=== PATIENT | female | born 1955 | race Caucasian/White ===

== ENCOUNTER 2017-12-25 11:05 | Emergency (ER) | payer OTHER, SELFPAY ==
[2017-12-25 11:05] VITALS: BP 194/119; PULSE 107; RESP 15; TEMP 36.6; O2SAT 98; BMI 34.7
[2017-12-25 11:27] VITALS: BP 184/101; PULSE 101; RESP 18; O2SAT 100
--- NOTE | 2017-12-25 11:36 | CT_ITS ---
STUDY: CT SOFT TISSUE NECK WITHOUT CONTRAST REASON FOR EXAM: Female, 62 years old. Gagging sensation. Postnasal drip. Sinus infection. RADIATION DOSAGE (If Supplied By Facility): CTDIvol = ( 21.5 ) mGy, DLP = ( 595.88 ) mGycm TECHNIQUE: The patient was scanned in a multi-detector CT scanner. High resolution transaxial imaging was performed without the administration of intravenous contrast material. Sagittal and coronal images were reconstructed. Individualized dose optimization techniques were used for this CT. COMPARISON: None. FINDINGS: Normal bilateral parotid glands. Normal bilateral train crew member spaces. Normal bilateral parapharyngeal spaces. Normal bilateral carotid spaces. Normal bilateral sublingual and submandibular glands and spaces. Normal visualized nasopharynx. Normal retropharyngeal space. Normal perivertebral space. Normal visualized bilateral faucial tonsils. The visualized tongue, tongue base and oropharynx are normal. The visualized cervical lymph nodes (levels I-) are within normal size limits, and maintain normal morphology. There is no demonstrated solid or cystic mass lesion. Normal epiglottis, bilateral vallecula and hypopharynx. The pre-epiglottic and paraglottic adipose spaces are normal. Normal visualized bilateral piriform sinuses, aryepiglottic folds, vocal cords, and arytenoid-cricoid articulations. Normal subglottic trachea. Normal bilateral lobes of the thyroid gland. Normal visualized pulmonary apices. Benign mucus retention cyst in the roof of the right maxillary sinus and in the floor of the left maxillary sinus. Minimal mucosal thickening in the anterior wall of the left maxillary sinus. The remaining paranasal sinuses are normal. Pronounced disc space height narrowing at C6-C7 disc space level with posterior marginal spurs. Moderate disc space height narrowing at C3-C4 and C5-C6 disc space levels. Mild disc space height narrowing at C4-C5 disc space level. CT/Soft Tissue Neck without Contr IMPRESSION: 1. No CT evidence of any suspicious mass in the suprahyoid neck and infrahyoid neck. 2. Benign mucus retention cyst in the roof of the right maxillary sinus and in the floor of the left maxillary sinus. 3. Minimal mucosal thickening in the anterior wall of the left maxillary sinus. Electronically Signed: Denny Myles MD at 12:28 EST , Service support ,
--- NOTE | 2017-12-25 12:33 | ED.RN ---
ok for pt to take own Valium per
--- NOTE | 2017-12-25 12:45 | ED.VISSUMM ---
- ER Visit Summary Date of Service: 12/25/17 Chief Complaint: Pain with swallowing History of Present Illness: The patient is a [address] Velazquez. She was seen in the office yesterday and placed on amoxicillin for a sinus infection. She reports she has had a great deal postnasal drainage. Reports that today her throat feels scratchy and she is having pain when she swallows. She also complains of chills and nausea. She denies any other complaints. Physical Examination: Vitals: Stable. Afebrile. General: Well-nourished and well-developed. Head: Normocephalic atraumatic. HEENT: No pharyngeal erythema or tonsillar exudate. There is no tonsillar enlargement. No evidence of a peritonsillar abscess. She does have mild pain with movement of her trachea. Neck: Supple, no lymphadenopathy. No JVD. Nontender. Cardiovascular: Regular rate and rhythm. No murmurs. Respiratory: No respiratory distress. Clear to auscultation bilaterally. No stridor. Abdominal: Soft, nontender, nondistended, normal bowel sounds. No guarding, rebound, or peritoneal signs. Back: Nontender. Extremities: Nontender, no edema. Skin: Normal color, no rash. Neurologic: Alert and oriented ?3. Cranial nerves II through XII are intact. Normal strength and sensation. Psych: Normal affect. Test Results: CT soft tissues next shows sinusitis and normal epiglottis. Emergency Department Course and Treatment: Patient is able to swallow here without any difficulty. She is protecting her airway without any difficulty. Treatment Plan: Patient will be discharged instructions continue her antibiotics and follow-up with Dr. Ervin in 1 week if not improving. Return to the emergency department for any worsening symptoms. Disposition: To home in improved and stable condition. Impression: 1. Sinusitis. This note was generated with [employer] dictation software. It may contain incorrect words, spelling, and punctuation that were not noted in review of the chart prior to signing ED Disposition - Plan for ED Patient: Disposition: Home or Assisted Living Chief Complaint: Nausea/Vomiting Instructions: ED Sinusitis Abx Tx Referrals: Barbara Velazquez MD [Primary Care Provider] - 3-5 Days if not improving
== END 2017-12-25 13:20 | disposition home or self-care (01) ==
PROVIDERS: Emergency Provider Emergency Medicine; Family Provider Family Medicine; PCP Family Medicine
DX: J32.9 Chronic sinusitis, unspecified (principal); E78.00 Pure hypercholesterolemia, unspecified
CPT/HCPCS: 70490; 99282

== ENCOUNTER 2018-04-08 21:25 | Emergency (ER) | payer OTHER, SELFPAY ==
[2018-04-08 21:27] VITALS: BP 180/70; PULSE 109; RESP 20; TEMP 36.7; O2SAT 99; BMI 33.7
--- NOTE | 2018-04-08 21:44 | ED.VISSUMM ---
- ER Visit Summary Date of Service: 04/08/18 Chief Complaint: Dental pain History of Present Illness: The patient is a 63 F dental pain for several days. She had her implants adjusted and that is when the pain started at the site of the implant but she has also been having pain at her left mandibular second molar for several days. It is worse with chewing. Better with Motrin. No neck pain or jaw pain. No chest pain. No exertional pain. No recent antibiotics. Physical Examination: She does have focal tenderness on percussion of mandibular second molar. There is mild focal gum swelling. No trismus. No focal abscess. Submandibular tissues and anterior neck structures are soft. Voice is normal. No tongue elevation. Test Results: None Emergency Department Course and Treatment: She is concerned about a dental infection and she does have focal tenderness. I think it is reasonable to treat her with antibiotics and she will continue Motrin. She is planning to follow-up with her dentist. She will return if worse. This does not sound like atypical cardiac pain. Treatment Plan: Oral antibiotics and pain medication Disposition: Home stable condition Impression: Initial encounter dental pain This note was generated with [employer] dictation software. It may contain incorrect words, spelling, and punctuation that were not noted in review of the chart prior to signing ED Disposition - Plan for ED Patient: Chief Complaint: Dental Instructions: ED Tooth Pain Prescriptions: Lidocaine 2% Viscous [Xylocaine Viscous] 5 ml PO TID PRN #100 ml PRN Reason: Pain Penicillin V Potassium 500 mg PO 4X/DAY #40 tablet Referrals: Barbara Velazquez MD [Primary Care Provider] -
[2018-04-08] MEDS: Penicillin Vk 250 MG Tablet 500 MG PO (21:57)
--- NOTE | 2018-04-08 22:05 | ED.RN ---
PT REQUESTED TO HAVE T#3'S FOR HER DENTAL PAIN AND WAS TOLD TO ASK FOR THEM FROM HER PHARMACIST. THIS NURSE EXPLAINED THAT THE E.D. PHYSICIAN WROTE FOR LIDOCAINE SWISH AND ANTIBIOTICS, NOT FOR NARCOTICS. PT IS WELCOME TO TAKE NSAIDS FOR PAIN AND INFLAMMATION IF TOLERATED BY THE PT. PT WAS UPSET THAT SHE COULD NOT GET AN RX FOR NARCOTICS. DR. PRADO INFORMED OF SAME AND STATED HE WOULD NOT WRITE FOR NARCOTICS FOR PT'S DENTAL PAIN. PT THEN THANKED THIS NURSE FOR EVERYTHING AND THEN ASKED WHAT IS YOUR NAME? THIS NURSE STATED NAA PT THEN LEFT WITH DISCHARGE INSTRUCTIONS.
--- NOTE | 2018-04-09 10:41 | ED.DEP ---
ED Disposition - Plan for ED Patient: Disposition: Home or Assisted Living Chief Complaint: Dental Instructions: ED Tooth Pain Prescriptions: Lidocaine 2% Viscous [Xylocaine Viscous] 5 ml PO TID PRN #100 ml PRN Reason: Pain Lidocaine 2% Viscous [Xylocaine Viscous] 5 ml PO TID #100 ml Penicillin V Potassium 500 mg PO 4X/DAY #40 tablet Penicillin V Potassium 500 mg PO 4X/DAY #40 tab Referrals: Barbara Velazquez MD [Primary Care Provider] -
== END 2018-04-08 22:10 | disposition home or self-care (01) ==
LOC: ED 22:02
PROVIDERS: Emergency Provider Emergency Medicine; Family Provider Family Medicine; PCP Family Medicine
DX: K08.89 Other specified disorders of teeth and supporting structures (principal)
CPT/HCPCS: 99283

== ENCOUNTER 2018-05-07 19:27 | Emergency (ER) | payer OTHER, SELFPAY ==
[2018-05-07 19:28] VITALS: BP 154/96; PULSE 100; RESP 18; TEMP 36.7; O2SAT 100; BMI 35.0
--- NOTE | 2018-05-07 20:09 | ED.DCSUM_ITS ---
- ER Visit Summary Date of Service: 05/07/18 Chief Complaint: Earwax drops accidentally placed in left eye History of Present Illness: The patient is a 63 F of anxiety. States that she started on earwax drops and actually put him in her left eye and some mild discomfort. She called poison control. Watch dry out thoroughly. Was concerned and came in to have it evaluated. She wears glasses no contacts. She denies any pain. She denies any redness. She denies any swelling. She denies any visual change. She has never had eye surgery. Currently she states she is completely pain-free. Physical Examination: Very well-appearing female. Vital signs are stable afebrile. HEENT exam normal left eye is normal color there is no redness or discoloration. There is no injection. The upper and lower lids are unremarkable without any signs of trauma nor any swelling. Pupils round reactive light bilaterally. Extra motions are intact. There is no swelling, redness or signs of trauma to the face. There are no signs of foreign body or abrasions to the left eye. Otherwise exam is unremarkable. Test Results: None Emergency Department Course and Treatment: Clinically patient's eye is normal. She is having no complaints. No visual change. She needs no further testing. She already washed it out at home. She did bring the earwax drops with her which were basically peroxide. Treatment Plan: Discharged to home. Wash her eye out again tonight before bedtime. Disposition: Discharge Impression: Chemical exposure left eye This note was generated with [employer] dictation software. It may contain incorrect words, spelling, and punctuation that were not noted in review of the chart prior to signing ED Disposition - Plan for ED Patient: Chief Complaint: Eye Problem Referrals: Barbara Velazquez MD [Primary Care Provider] -
--- NOTE | 2018-05-07 20:09 | ED.DEP ---
ED Disposition - Plan for ED Patient: Disposition: Home or Assisted Living Chief Complaint: Eye Problem Referrals: Tracy Craven MD [STAFF PHYSICIAN] - 1-2 Days if not improving Additional Instructions: This should not cause your eye any problem. The earwax drops are basically peroxide and should not cause any injury. Wash her eye out at home again today before bedtime. Follow-up with the director of resource development only if having symptoms.
[2018-05-07 20:22] VITALS: RESP 16
== END 2018-05-07 20:22 | disposition home or self-care (01) ==
LOC: ED 20:16
PROVIDERS: Emergency Provider Emergency Medicine; Family Provider Family Medicine; PCP Family Medicine
DX: Z77.098 Contact with and (suspected) exposure to other hazardous, chiefly nonmedicinal, chemicals (principal); K21.9 Gastro-esophageal reflux disease without esophagitis
CPT/HCPCS: 99282

== ENCOUNTER 2018-07-26 01:06 | Emergency (ER) | payer OTHER, SELFPAY ==
[2018-07-26 01:07] VITALS: BP 213/105; PULSE 115; RESP 21; TEMP 36.4; O2SAT 100; BMI 35.5
--- NOTE | 2018-07-26 01:20 | ED.VISSUMM ---
- ER Visit Summary Date of Service: 07/26/18 Chief Complaint: Do not feel all here History of Present Illness: The patient is a 63 F who presents for 30 minutes of feeling dissociated and lightheaded. Patient states she was watching TV when she suddenly felt lightheaded and like she was not all here. She felt heartburn and palpitations, also complaining of dry mouth. states she took extra Valium prior to coming in because of how she was feeling. She denies fever, vision changes, chest pain, shortness of breath, abdominal pain, nausea vomiting or diarrhea. No urinary symptoms. No headache. Patient feels diffusely weak and not herself. Patient takes Valium twice daily, decreased from 3 times daily, but she has been on this decreased regimen for several weeks. She denies any alcohol use, marijuana use, or any other drug use. She denies any use of [id number] medications. History of anxiety attacks, chronic dry mouth, Physical Examination: Vital signs: afebrile, hypertensive and tachycardic, no hypoxia on room air General: well nourished, well developed, in no distress Skin: warm, dry, scattered erythematous patches on the upper extremities, no urticaria, no pallor HEENT: normocephalic and atraumatic; PERRL, EOMI, dry mucous membranes Cardiovascular: Tachycardic rate and rhythm without murmurs, no peripheral edema, 2+ pulses all distal extremities Respiratory: No increased work of breathing, lungs are clear to auscultation bilaterally, no rales, rhonchi or wheezing Abdominal: Abdomen is soft, nontender with normoactive bowel sounds, no guarding or rebound, no masses MSK: Moves all extremities, no deformities, normal strength Neuro: Awake and alert, oriented ?4. Speech is slow and slurred, patient requires constant refocusing to keep her attention on the questions at hand, no facial droop, sensation and motor function intact and symmetric Test Results: Abnormal Lab Results 07/26/18 07/26/18 07/26/18 01:15 01:15 01:30 WBC 12.0 H RBC 4.06 L Hgb 11.4 L Hct 33.5 L MCV 82.5 MCH 28.1 MCHC 34.0 RDW 13.7 RDW Differential 40.7 Plt Count 442 MPV 9.6 Immature Gran % (Auto) 0.200 Neut % (Auto) 53.4 Lymph % (Auto) 36.1 [place] % (Auto) 8.1 Eos % (Auto) 1.8 Baso % (Auto) 0.4 Absolute Neuts (auto) 6.4 Absolute Lymphs (auto) 4.34 Total Counted Not Reportable Sodium 130 L Potassium 3.5 Chloride 97 L Carbon Dioxide 22.0 Anion Gap 11 BUN 8 Creatinine 0.68 Estim Creat Clear Calc 80.30 Est GFR (MDRD) Af Amer 114 Est GFR (MDRD) Non-Af 94 BUN/Creatinine Ratio 11.9 Glucose 123 H Calcium 8.7 Magnesium 2.3 Troponin I < 0.015 TSH 5.54 H Urine Color Urine Clarity Urine pH Ur Specific [place] Urine Protein Urine Glucose (UA) Urine Ketones Urine Occult Blood Urine Nitrite Urine Bilirubin Urine Urobilinogen Ur Leukocyte Esterase Urine RBC Urine WBC Ur Squamous Epith Cells Urine Bacteria Urine Mucus Urine Opiates Screen Urine Methadone Screen Ur Barbiturates Screen Ur Phencyclidine Scrn Ur Amphetamines Screen U Methamphetamin-MDMA U Benzodiazepines Scrn Urine Cocaine Screen U Cannabinoids Screen Ur Drug Screen Comment Ethyl Alcohol < 3.0 07/26/18 07/26/18 01:55 01:55 WBC RBC Hgb Hct MCV MCH MCHC RDW RDW Differential Plt Count MPV Immature Gran % (Auto) Neut % (Auto) Lymph % (Auto) [place] % (Auto) Eos % (Auto) Baso % (Auto) Absolute Neuts (auto) Absolute Lymphs (auto) Total Counted Sodium Potassium Chloride Carbon Dioxide Anion Gap BUN Creatinine Estim Creat Clear Calc Est GFR (MDRD) Af Amer Est GFR (MDRD) Non-Af BUN/Creatinine Ratio Glucose Calcium Magnesium Troponin I TSH Urine Color Straw Urine Clarity Clear Urine pH 8.0 Ur Specific [place] 1.010 Urine Protein Negative Urine Glucose (UA) Normal Urine Ketones Negative Urine Occult Blood Negative Urine Nitrite Negative Urine Bilirubin Negative Urine Urobilinogen Normal Ur Leukocyte Esterase Negative Urine RBC 0 SEEN Urine WBC 0 SEEN Ur Squamous Epith Cells 0 SEEN Urine Bacteria 0 SEEN Urine Mucus 0 SEEN Urine Opiates Screen NEGATIVE Urine Methadone Screen NEGATIVE Ur Barbiturates Screen NEGATIVE Ur Phencyclidine Scrn NEGATIVE Ur Amphetamines Screen NEGATIVE U Methamphetamin-MDMA NEGATIVE U Benzodiazepines Scrn NEGATIVE Urine Cocaine Screen NEGATIVE U Cannabinoids Screen NEGATIVE Ur Drug Screen Comment Ethyl Alcohol Clinical Impression(s) from Imaging Studies Chest X-Ray 07/26/18 01:19 IMPRESSION: A mild thoracic scoliosis with convexity to the right. No acute findings in the lungs Electronically Signed: Daniel Andrews, at 2:29 EDT Tel , Service support , Medications Given Discontinued Medications Aspirin (Aspirin, Baby) 324 mg PO X1 STA Stop: 07/26/18 01:20 Last Admin: 07/26/18 01:50 Dose: 324 mg Sodium Chloride () 1,000 mls @ 1,000 mls/hr IV .Q1H ONE Stop: 07/26/18 02:18 Last Admin: 07/26/18 02:00 Dose: 1,000 mls/hr Emergency Department Course and Treatment: Patient presents feeling dissociated, with tachycardia, hypertension, dry mouth and blotchy erythema of the skin without known cause. Patient denies any chance of withdrawal from medication, or drug or medication reaction. Workup was performed showing no significant electrolyte derangements, renal or hepatic derangements, leukocytosis. Tox screen and alcohol were negative. EKG showed sinus rhythm without any ischemic changes. TSH was modestly elevated at 5.5. Chest x-ray showed no acute process. Patient received fluid bolus and aspirin, with initial concern for possible atypical chest pain. shared that the patient often has anxiety and her current presentation is not abnormal for her. 03:10 -After period of observation and receiving IV hydration, patient's symptoms resolved. patient reevaluated and was sitting in bed very calmly. Speech was normal, no slurring, no slowing, mucous membranes were moist. Heart rate 100. Patient states she feels much better no longer feels outside of herself. She feels well enough to go home. Patient was discharged. Treatment Plan: [] Disposition: [] Impression: Panic attack This note was generated with [employer] dictation software. It may contain incorrect words, spelling, and punctuation that were not noted in review of the chart prior to signing ED Disposition - Plan for ED Patient: Disposition: Home or Assisted Living Chief Complaint: Anxiety Instructions: ED Panic Attack Referrals: Barbara Velazquez MD [Primary Care Provider] - 1-2 Days if not improving Additional Instructions: Your workup did not show any concerning findings to explain your episode of feeling dissociated. Please follow-up with your doctor within 1-2 days for another evaluation if you have any further episodes. You can also return to the emergency department at any time if you have any worsening or new concerning symptoms. Continue all your medications as prescribed. If you have any worsening of your condition or any new concerning symptoms, please return immediately to the emergency department for another evaluation.
--- NOTE | 2018-07-26 01:23 | ED.DCSUM_ITS ---
- ER Visit Summary Date of Service: 07/26/18 Chief Complaint: Do not feel all here History of Present Illness: The patient is a 63 F who presents for 30 minutes of feeling dissociated and lightheaded. Patient states she was watching TV when she suddenly felt lightheaded and like she was not all here. She felt heartburn and palpitations, also complaining of dry mouth. states she took extra Valium prior to coming in because of how she was feeling. She denies fever, vision changes, chest pain, shortness of breath, abdominal pain, nausea vomiting or diarrhea. No urinary symptoms. No headache. Patient feels diffusely weak and not herself. Patient takes Valium twice daily, decreased from 3 times daily, but she has been on this decreased regimen for several weeks. She denies any alcohol use, marijuana use, or any other drug use. She denies any use of [id number] medications. History of anxiety attacks, chronic dry mouth, Physical Examination: Vital signs: afebrile, hypertensive and tachycardic, no hypoxia on room air General: well nourished, well developed, in no distress Skin: warm, dry, scattered erythematous patches on the upper extremities, no urticaria, no pallor HEENT: normocephalic and atraumatic; PERRL, EOMI, dry mucous membranes Cardiovascular: Tachycardic rate and rhythm without murmurs, no peripheral edema , 2+ pulses all distal extremities Respiratory: No increased work of breathing, lungs are clear to auscultation bilaterally, no rales, rhonchi or wheezing Abdominal: Abdomen is soft, nontender with normoactive bowel sounds, no guarding or rebound, no masses MSK: Moves all extremities, no deformities, normal strength Neuro: Awake and alert, oriented ?4. Speech is slow and slurred, patient requires constant refocusing to keep her attention on the questions at hand, no facial droop, sensation and motor function intact and symmetric Test Results: Abnormal Lab Results 07/26/18 07/26/18 07/26/18 01:15 01:15 01:30 WBC 12.0 H RBC 4.06 L Hgb 11.4 L Hct 33.5 L MCV 82.5 MCH 28.1 MCHC 34.0 RDW 13.7 RDW Differential 40.7 Plt Count 442 MPV 9.6 Immature Gran % (Auto) 0.200 Neut % (Auto) 53.4 Lymph % (Auto) 36.1 [place] % (Auto) 8.1 Eos % (Auto) 1.8 Baso % (Auto) 0.4 Absolute Neuts (auto) 6.4 Absolute Lymphs (auto) 4.34 Total Counted Not Reportable Sodium 130 L Potassium 3.5 Chloride 97 L Carbon Dioxide 22.0 Anion Gap 11 BUN 8 Creatinine 0.68 Estim Creat Clear Calc 80.30 Est GFR (MDRD) Af Amer 114 Est GFR (MDRD) Non-Af 94 BUN/Creatinine Ratio 11.9 Glucose 123 H Calcium 8.7 Magnesium 2.3 Troponin I < 0.015 TSH 5.54 H Urine Color Urine Clarity Urine pH Ur Specific [place] Urine Protein Urine Glucose (UA) Urine Ketones Urine Occult Blood Urine Nitrite Urine Bilirubin Urine Urobilinogen Ur Leukocyte Esterase Urine RBC Urine WBC Ur Squamous Epith Cells Urine Bacteria Urine Mucus Urine Opiates Screen Urine Methadone Screen Ur Barbiturates Screen Ur Phencyclidine Scrn Ur Amphetamines Screen U Methamphetamin-MDMA U Benzodiazepines Scrn Urine Cocaine Screen U Cannabinoids Screen Ur Drug Screen Comment Ethyl Alcohol < 3.0 07/26/18 07/26/18 01:55 01:55 WBC RBC Hgb Hct MCV MCH MCHC RDW RDW Differential Plt Count MPV Immature Gran % (Auto) Neut % (Auto) Lymph % (Auto) [place] % (Auto) Eos % (Auto) Baso % (Auto) Absolute Neuts (auto) Absolute Lymphs (auto) Total Counted Sodium Potassium Chloride Carbon Dioxide Anion Gap BUN Creatinine Estim Creat Clear Calc Est GFR (MDRD) Af Amer Est GFR (MDRD) Non-Af BUN/Creatinine Ratio Glucose Calcium Magnesium Troponin I TSH Urine Color Straw Urine Clarity Clear Urine pH 8.0 Ur Specific [place] 1.010 Urine Protein Negative Urine Glucose (UA) Normal Urine Ketones Negative Urine Occult Blood Negative Urine Nitrite Negative Urine Bilirubin Negative Urine Urobilinogen Normal Ur Leukocyte Esterase Negative Urine RBC 0 SEEN Urine WBC 0 SEEN Ur Squamous Epith Cells 0 SEEN Urine Bacteria 0 SEEN Urine Mucus 0 SEEN Urine Opiates Screen NEGATIVE Urine Methadone Screen NEGATIVE Ur Barbiturates Screen NEGATIVE Ur Phencyclidine Scrn NEGATIVE Ur Amphetamines Screen NEGATIVE U Methamphetamin-MDMA NEGATIVE U Benzodiazepines Scrn NEGATIVE Urine Cocaine Screen NEGATIVE U Cannabinoids Screen NEGATIVE Ur Drug Screen Comment Ethyl Alcohol Clinical Impression(s) from Imaging Studies Chest X-Ray 07/26/18 01:19 IMPRESSION: A mild thoracic scoliosis with convexity to the right. No acute findings in the lungs Electronically Signed: Daniel Andrews, at 2:29 EDT Tel , Service support , Medications Given Discontinued Medications Aspirin (Aspirin, Baby) 324 mg PO X1 STA Stop: 07/26/18 01:20 Last Admin: 07/26/18 01:50 Dose: 324 mg Sodium Chloride () 1,000 mls @ 1,000 mls/hr IV .Q1H ONE Stop: 07/26/18 02:18 Last Admin: 07/26/18 02:00 Dose: 1,000 mls/hr Emergency Department Course and Treatment: Patient presents feeling dissociated , with tachycardia, hypertension, dry mouth and blotchy erythema of the skin without known cause. Patient denies any chance of withdrawal from medication, or drug or medication reaction. Workup was performed showing no significant electrolyte derangements, renal or hepatic derangements, leukocytosis. Tox screen and alcohol were negative. EKG showed sinus rhythm without any ischemic changes. TSH was modestly elevated at 5.5. Chest x-ray showed no acute process. Patient received fluid bolus and aspirin, with initial concern for possible atypical chest pain. shared that the patient often has anxiety and her current presentation is not abnormal for her. 03:10 -After period of observation and receiving IV hydration, patient's symptoms resolved. patient reevaluated and was sitting in bed very calmly. Speech was normal, no slurring, no slowing, mucous membranes were moist. Heart rate 100. Patient states she feels much better no longer feels outside of herself. She feels well enough to go home. Patient was discharged. Treatment Plan: [] Disposition: [] Impression: Panic attack This note was generated with [employer] dictation software. It may contain incorrect words, spelling, and punctuation that were not noted in review of the chart prior to signing ED Disposition - Plan for ED Patient: Disposition: Home or Assisted Living Chief Complaint: Anxiety Instructions: ED Panic Attack Referrals: Barbara Velazquez MD [Primary Care Provider] - 1-2 Days if not improving Additional Instructions: Your workup did not show any concerning findings to explain your episode of feeling dissociated. Please follow-up with your doctor within 1-2 days for another evaluation if you have any further episodes. You can also return to the emergency department at any time if you have any worsening or new concerning symptoms. Continue all your medications as prescribed. If you have any worsening of your condition or any new concerning symptoms, please return immediately to the emergency department for another evaluation.
[2018-07-26 01:41] LABS: Absolute Lymphocyte Count 4.34 X10^3/ul (0.83-4.51); Absolute Neutrophil Count 6.4 X10^3/uL (2.0-7.7); Basophil# 0.05 X10^3/uL; Basophil% 0.4 % (0-1); Eosinophil# 0.22 X10^3/uL; Eosinophils% 1.8 % (0-5); Hematocrit 33.5 % (37-47); Hemoglobin 11.4 g/dl (12.0-15.0); Lymphocyte # 4.34 X10^3/ul (4.0); Lymphocyte % 36.1 % (19-41); Mean Corpuscular Hgb 28.1 pg (27.0-32.0); Mean Corpuscular Volume 82.5 fL (81-99); Mean Platelet Vol. 9.6 fl (6.2-12.0); Monocyte# 0.98 X10^3/uL; Monocyte% 8.1 % (0-10); Neutrophil # 6.42 X10^3/uL (2.7-7.7); Neutrophil % 53.4 % (47-70); POSITIVE COUNT NO; POSITIVE DIFFERENTIAL NO; POSITIVE MORPHOLOGY NO; Platelet Count 442 K/mm3 (150-450); RBC Distribution Width CV 13.7 % (11.6-14.6); RBC Distribution Width SD 40.7 fl (35.1-43.9); Red Blood Count 4.06 M/mm3 (4.2-5.4)
[2018-07-26] MEDS: Aspirin 81 MG TAB.CHEW 324 MG PO (01:50)
[2018-07-26 02:00] LABS: Anion Gap 11 (5-15); BUN 8 mg/dL (7-18); BUN/Creat Ratio 11.9 RATIO (10-20); Calcium,Total 8.7 mg/dL (8.5-10.1); Chloride 97 mmol/L (98-107); Creatinine, Serum 0.68 mg/dL (0.55-1.02); EST Glomerular Filtration Rate 94 mL/min (>60); Est Glom Filt Rate - Afr Amer 114 mL/min (>60); Glucose 123 mg/dL (74-106); Magnesium 2.3 mg/dL (1.6-2.6); Potassium 3.5 mmol/L (3.5-5.1); Sodium Level 130 mmol/L (136-145); Thyroid Stim Hormone (TSH) 5.54 uIU/mL (0.358-3.74)
[2018-07-26] MEDS: 0.9% Normal Saline 1,000 ML 1000 ML IV (02:00)
[2018-07-26 02:05] LABS: Alcohol, Blood (Medical)-Serum < 3.0 mg/dL
[2018-07-26 02:13] LABS: Amphetamine Urine VISTA NEGATIVE (<1000 ng/mL); Barbiturate Urine VISTA NEGATIVE (< 200 ng/mL); Benzodiazepine Urine VISTA NEGATIVE (< 200 ng/mL); Cocaine Urine VISTA NEGATIVE (< 300 ng/mL); Ecstacy Urine VISTA NEGATIVE (< 500 ng/mL); Methadone Urine VISTA NEGATIVE (< 300 ng/mL); PCP Urine VISTA NEGATIVE (< 25 ng/mL); THC Urine VISTA NEGATIVE (< 50 ng/mL); Vista UDS pH Range 7
--- NOTE | 2018-07-26 03:10 | ED.DEP ---
ED Disposition - Plan for ED Patient: Disposition: Home or Assisted Living Chief Complaint: Anxiety Instructions: ED Panic Attack Referrals: Barbara Velazquez MD [Primary Care Provider] - 1-2 Days if not improving Additional Instructions: Your workup did not show any concerning findings to explain your episode of feeling dissociated. Please follow-up with your doctor within 1-2 days for another evaluation if you have any further episodes. You can also return to the emergency department at any time if you have any worsening or new concerning symptoms. Continue all your medications as prescribed. If you have any worsening of your condition or any new concerning symptoms, please return immediately to the emergency department for another evaluation.
[2018-07-26 03:36] VITALS: BP 174/97; PULSE 105; RESP 16; O2SAT 100
[2018-07-26 04:26] LABS: Bacteria 0 SEEN /hpf (None Seen); Mucous, Urine 0 SEEN /hpf (<or=2+); Red Blood Cells-Urine 0 SEEN /hpf (0-5); Squamous Epithelial Cells - UA 0 SEEN /hpf (5-10); White Blood Cells 0 SEEN /hpf (0-5)
[2018-07-26 04:37] LABS: Color, Urine Straw (Yellow); Glucose, Dipstick Normal (Normal); Ketone-Dipstick Negative (Negative); Leukocyte Esterase-Dipstick Negative /ul (Negative); Nitrite-Dipstick Negative (Negative); Occult Blood-Urine Negative /ul (Negative); Protein-Dipstick Negative (Negative); Urine Bilirubin Dipstick Negative (Negative); Urine Clarity Clear (Clear); Urine Urobilinogen Normal (Normal)
== END 2018-07-26 03:37 | disposition home or self-care (01) ==
PROVIDERS: Emergency Provider Emergency Medicine; Family Provider Family Medicine; PCP Family Medicine
DX: F41.0 Panic disorder [episodic paroxysmal anxiety] (principal)
CPT/HCPCS: 71046; 80048; 80307; 80320; 81001; 83735; 84443; 84484; 85025; 93005; 96360; 99284; J7030; G0480

== ENCOUNTER 2018-10-30 06:57 | Emergency (ER) | payer OTHER, SELFPAY ==
[2018-10-30 06:57] VITALS: BMI 34.7
[2018-10-30 06:58] VITALS: BP 219/104; PULSE 114; RESP 18; TEMP 36.7; O2SAT 98; BMI 35.8
--- NOTE | 2018-10-30 07:11 | EKG12_ITS ---
Test Reason : CP Blood Pressure : / mmHG Vent. Rate : 116 BPM Atrial Rate : 116 BPM P-R Int : 156 ms QRS Dur : 110 ms QT Int : 334 ms P-R-T Axes : 035 -15 030 degrees QTc Int : 464 ms Sinus tachycardia Otherwise normal ECG Confirmed by BIA KIM, MIGUELINA ([id number]), photo editor MITZY ROY ([id number]) on 11/02/2018 1:53:49 PM Referred By: MORGAN Confirmed By:MIGUELIAN AMEZQUITA MD
--- NOTE | 2018-10-30 07:17 | RAD_ITS ---
STUDY: X-RAY CHEST REASON FOR EXAM: Female, 63 years old. Chest TECHNIQUE: Frontal view COMPARISON: None. FINDINGS: The lungs are clear and expanded. There is no demonstrated pleural abnormality. Normal size heart. Normal mediastinum and fe. Normal visualized pulmonary arteries. Normal visualized aortic arch and descending thoracic aorta. There is mild dextroscoliosis of the thoracic spine. Normal visualized ribs, clavicles, and shoulders. There is no demonstrated abnormality of the visualized soft tissue structures of the upper abdomen. RAD/Chest 1 View (Portable) IMPRESSION: There is NO acute cardiopulmonary abnormality. Electronically Signed: Jostin Cardenas MD at 7:41 EST , Service support ,
[2018-10-30 07:38] LABS: Absolute Lymphocyte Count 4.14 X10^3/ul (0.83-4.51); Absolute Neutrophil Count 7.2 X10^3/uL (2.0-7.7); Basophil# 0.03 X10^3/uL; Basophil% 0.2 % (0-1); Eosinophil# 0.14 X10^3/uL; Eosinophils% 1.1 % (0-5); Hematocrit 33.4 % (37-47); Hemoglobin 11.1 g/dl (12.0-15.0); Lymphocyte # 4.14 X10^3/ul (4.0); Lymphocyte % 33.3 % (19-41); Mean Corp Hgb Conc 33.2 g/gl (32-36); Mean Corpuscular Hgb 27.1 pg (27.0-32.0); Mean Corpuscular Volume 81.5 fL (81-99); Mean Platelet Vol. 8.9 fl (6.2-12.0); Monocyte# 0.92 X10^3/uL; Monocyte% 7.4 % (0-10); Neutrophil % 57.8 % (47-70); Platelet Count 463 K/mm3 (150-450); RBC Distribution Width CV 14.3 % (11.6-14.6); RBC Distribution Width SD 42.8 fl (35.1-43.9); White Blood Count 12.5 K/mm3 (4.4-11.0)
[2018-10-30 07:40] LABS: POSITIVE COUNT NO; POSITIVE DIFFERENTIAL NO; POSITIVE MORPHOLOGY NO
--- NOTE | 2018-10-30 07:43 | ED.DCSUM_ITS ---
- ER Visit Summary Date of Service: 10/30/18 Chief Complaint: Chest pressure History of Present Illness: The patient is a 63 F no prior history of cardiac disease. No significant family history of coronary disease. Non-smoker. Patient states since last evening around 530 she has had chest pressure has been constant. Not associated with exertion. She denies any shortness of breath, nausea or diaphoresis. She has had a prior stress test that was negative. She is never had a cardiac catheterization. She denies any history of DVT or PE. No hemoptysis. The chest pain is not pleuritic. She denies any leg pain or swelling. No recent travel, surgery or immobilization. Nothing specifically makes the pain better or worse. Recently they have been weaning her Valium prescription that she is on for a panic disorder. Physical Examination: Well-appearing female. Vital signs are stable and afebrile. Her initial blood pressure is elevated at 219/104. She does appear anxious. She is in no distress. H EENT exam unremarkable. Neck nontender. No JVD. Lungs clear to auscultation bilaterally. Heart tachycardic rate about 116. No murmur. Chest wall nontender. Abdomen soft nontender. Normal bowel sounds no peritoneal signs. Patient is moving all 4 extremities. They are neurovascularly intact. Calves are nontender without edema or cords. Neurologically patient is awake and alert with no focal motor deficits. She has equal symmetrical senior research fellow strength. Equal symmetrical dorsi and plantar flexion. She has no focal motor deficits. Test Results: Patient will undergo cardiac workup. CBC shows white count 12.5. Hemoglobin 11 which is her baseline anemia. BMP shows a sodium of 129 previously she was 130. She has a normal creatinine and gap. Troponin is normal. Initial EKG was sinus tach at 116 without any signs of IA or ischemia. Portable 1 view chest x-ray shows a normal cardiac silhouette and mediastinum. Emergency Department Course and Treatment: P.O. aspirin. On repeat exam patient has been doing well the entire time in the emergency department. Currently she is symptom-free. Again this was completely nonexertional. Her workup is unremarkable. She denies discussed a 3-hour troponin which she is been deferred at this time and follow-up with her physician. Currently she is symptom-free. Treatment Plan: Patient is doing well on multiple repeat exams. She will be discharged home to follow-up with her primary care physician. Disposition: Discharge Impression: Acute chest pain of uncertain etiology This note was generated with [employer] dictation software. It may contain incorrect words, spelling, and punctuation that were not noted in review of the chart prior to signing ED Disposition - Plan for ED Patient: Chief Complaint: Chest Pain Referrals: Barbara Velazquez MD [Primary Care Provider] -
[2018-10-30 07:47] VITALS: BP 123/95; PULSE 104; RESP 19; O2SAT 99
[2018-10-30] MEDS: Aspirin 81 MG TAB.CHEW 324 MG PO (07:47)
[2018-10-30 07:51] LABS: Anion Gap 12 (5-15); BUN 7 mg/dL (7-18); Calcium,Total 8.7 mg/dL (8.5-10.1); Chloride 93 mmol/L (98-107); EST Glomerular Filtration Rate 90 mL/min (>60); Est Glom Filt Rate - Afr Amer 109 mL/min (>60); Estimated Creatinine Clearance 78.01 ml/min; Glucose 120 mg/dL (74-106); Potassium 3.3 mmol/L (3.5-5.1); Sodium Level 129 mmol/L (136-145)
[2018-10-30 08:38] VITALS: BP 187/81; PULSE 89; RESP 16; O2SAT 99
--- NOTE | 2018-10-30 08:40 | ED.DEP ---
ED Disposition - Plan for ED Patient: Disposition: Home or Assisted Living Chief Complaint: Chest Pain Instructions: ED Chest Pain Atypical Unkn Cause Referrals: Barbara Velazquez MD [Primary Care Provider] - As soon as possible Additional Instructions: Follow-up with your doctor to discuss possible outpatient stress testing.
== END 2018-10-30 08:53 | disposition home or self-care (01) ==
PROVIDERS: Emergency Provider Emergency Medicine; Family Provider Family Medicine; PCP Family Medicine
DX: R07.89 Other chest pain (principal); F41.0 Panic disorder [episodic paroxysmal anxiety]
CPT/HCPCS: 71045; 80048; 84484; 85025; 93005; 99284; A4216

== ENCOUNTER 2018-11-18 00:46 | Emergency (ER) | payer OTHER, SELFPAY ==
[2018-11-18] VITALS (7 sets, daily range): BP systolic 159–207; BP diastolic 85–99; PULSE 88–121; RESP 16–20; TEMP 36.9; O2SAT 97–100; BMI 32.8
[2018-11-18 01:40] LABS: Absolute Lymphocyte Count 3.13 X10^3/ul (0.83-4.51); Absolute Neutrophil Count 7.3 X10^3/uL (2.0-7.7); Basophil# 0.04 X10^3/uL; Basophil% 0.4 % (0-1); Eosinophil# 0.05 X10^3/uL; Eosinophils% 0.4 % (0-5); Hematocrit 36.2 % (37-47); Lymphocyte # 3.13 X10^3/ul (4.0); Lymphocyte % 27.6 % (19-41); Mean Corp Hgb Conc 33.1 g/gl (32-36); Mean Corpuscular Hgb 27.5 pg (27.0-32.0); Mean Platelet Vol. 9.5 fl (6.2-12.0); Monocyte# 0.81 X10^3/uL; Monocyte% 7.1 % (0-10); Neutrophil # 7.27 X10^3/uL (2.7-7.7); Neutrophil % 64.1 % (47-70); POSITIVE COUNT NO; POSITIVE DIFFERENTIAL NO; POSITIVE MORPHOLOGY NO; Platelet Count 471 K/mm3 (150-450); RBC Distribution Width CV 14.4 % (11.6-14.6); RBC Distribution Width SD 43.3 fl (35.1-43.9); Red Blood Count 4.36 M/mm3 (4.2-5.4); White Blood Count 11.3 K/mm3 (4.4-11.0)
[2018-11-18 01:55] LABS: Color, Urine Yellow (Yellow); Glucose, Dipstick Normal (Normal); Ketone-Dipstick Negative (Negative); Leukocyte Esterase-Dipstick Negative /ul (Negative); Nitrite-Dipstick Negative (Negative); Occult Blood-Urine 25 /ul (Negative); Protein-Dipstick 30 mg/dl (Negative); Specific Gravity, Urine 1.015 (1.002-1.030); Urine Bilirubin Dipstick Negative (Negative); Urine Clarity Sl. Cloudy (Clear); Urine Urobilinogen Normal (Normal)
[2018-11-18 02:01] LABS: AST(SGOT) 13 U/L (15-37); Alanine Aminotransfer ALT/SGPT 20 U/L (13-56); Alkaline Phosphatase 138 U/L (45-117); Anion Gap 12 (5-15); BUN 5 mg/dL (7-18); BUN/Creat Ratio 6.1 RATIO (10-20); Bilirubin, Direct 0.14 mg/dL (0.00-0.30); Calcium,Total 8.8 mg/dL (8.5-10.1); Chloride 96 mmol/L (98-107); Creatinine, Serum 0.82 mg/dL (0.55-1.02); EST Glomerular Filtration Rate 75 mL/min (>60); Est Glom Filt Rate - Afr Amer 90 mL/min (>60); Estimated Creatinine Clearance 66.59 ml/min; Globulin 4.2 g/dL (2.2-4.2); Glucose 147 mg/dL (74-106); Potassium 3.7 mmol/L (3.5-5.1); Protein, Total 8.2 g/dL (6.4-8.2); Sodium Level 130 mmol/L (136-145)
[2018-11-18 02:05] LABS: Hyaline Cast 0-5 SEEN /lpf (0-5); Mucous, Urine 1+ /hpf (<or=2+); Squamous Epithelial Cells - UA 0-5 SEEN /hpf (5-10); White Blood Cells 0-5 SEEN /hpf (0-5)
[2018-11-18 02:06] LABS: Bacteria RARE /hpf (None Seen); Red Blood Cells-Urine 0-5 SEEN /hpf (0-5)
[2018-11-18 02:25] LABS: Amphetamine Urine VISTA NEGATIVE (<1000 ng/mL); Barbiturate Urine VISTA NEGATIVE (< 200 ng/mL); Benzodiazepine Urine VISTA POSITIVE (< 200 ng/mL); Cocaine Urine VISTA NEGATIVE (< 300 ng/mL); Ecstacy Urine VISTA NEGATIVE (< 500 ng/mL); Methadone Urine VISTA NEGATIVE (< 300 ng/mL); PCP Urine VISTA NEGATIVE (< 25 ng/mL); THC Urine VISTA NEGATIVE (< 50 ng/mL); Vista UDS pH Range 6
[2018-11-18] MEDS: Imipramine HCl 25 MG Tablet 100 MG PO (03:40)
[2018-11-18] MEDS: Ziprasidone IM 20 MG/ML VIAL 10 MG IM ×2 (03:40→05:46)
--- NOTE | 2018-11-18 04:30 | ED.RN ---
PT IN AND OUT OF ROOM, C/O SHE IS DYING, AND CANT BREATH. REASSURED PT SHE IS IN A SAFE PLACE AND WALKED PT BACK TO HER ROOM TO TRY TO RELAX.
--- NOTE | 2018-11-18 04:53 | EKG12_ITS ---
Test Reason : MENTAL HEALTH Blood Pressure : / mmHG Vent. Rate : 106 BPM Atrial Rate : 106 BPM P-R Int : 190 ms QRS Dur : 118 ms QT Int : 362 ms P-R-T Axes : 065 -02 028 degrees QTc Int : 480 ms Sinus tachycardia Incomplete right bundle branch block Borderline ECG Confirmed by BEATRICE KIM, MARÍA ELENA ([id number]), makeup editor MITZY ROY ([id number]) on 11/23/2018 12:59:14 PM Referred By: NAIDA Confirmed By:MARÍA ELENA BARRON MD
[2018-11-18] MEDS: DiphenhydrAMINE 50 MG/ML Syringe IM (04:58)
--- NOTE | 2018-11-18 05:12 | ED.DCSUM_ITS ---
- ER Visit Summary Date of Service: 11/18/18 Chief Complaint: Abnormal behavior History of Present Illness: The patient is a 63 F who believes her is poisoning her and trying to shut down her central nervous system. She was reported ringing the neighbors door bells tonight. Patient states she believes that she is from her body. states she was weaned off of her Valium is not been taking her other medications. Physical Examination: Vital signs significant for blood pressure of 199/94 and a heart rate of 121. Patient is sitting upright in bed. She has pressured speech with flight of ideas. Head neck examination reveals no sign of trauma. Heart is regular rhythm with slight tachycardia. Lung sounds are clear. Abdomen is soft and nontender. Active bowel sounds are noted throughout. Neuro exam reveals no focal deficits. Psychiatric evaluation reveals pressured speech, paranoid ideation, and delusions. Test Results: CBC reveals a white count of 7.3. Platelet count is 471,000. Chemistry studies reveal a sodium of 130 and a chloride of 96. This is consistent with her labs for the last several months. Glucose is 147. LFTs normal. Urinalysis unremarkable. Tox screen is positive for benzos. EtOH is normal. Emergency Department Course and Treatment: Patient was continuously out of her room wandering the halls in spite of frequent redirection. She was given her normal evening dose of imipramine and was also given 10 mg of IM Geodon followed by 50 mill grams of IM Benadryl. Chary from the counseling center has seen the patient and she will require transfer. Treatment Plan: [] Disposition: Transfer Impression: Paranoid delusions Tandem: Patient has been accepted at [facility] for transfer. They did request that we give the patient either Ativan or phenobarbital for what they feel is withdrawal from Valium. She is given a dose of p.o. phenobarbital. This note was generated with [employer] dictation software. It may contain incorrect words, spelling, and punctuation that were not noted in review of the chart prior to signing ED Disposition - Plan for ED Patient: Chief Complaint: Mental Health Referrals: Barbara Velazquez MD [Primary Care Provider] -
--- NOTE | 2018-11-18 05:43 | ED.RN ---
patient has been accepted to [facility] C2 patient can arrive after 9 am
--- NOTE | 2018-11-18 06:46 | ED.RN ---
[facility] has accepted patient at this time. Patient needs pink slipped faxed to them and they are asking that we give patient either phenobarb or Ativan to treat Valium withdrawal
[2018-11-18] MEDS: Sertraline 50 MG Tablet PO (07:44)
[2018-11-18] MEDS: Levothyroxine 100 MCG Tablet PO (07:44)
--- NOTE | 2018-11-18 09:05 | ED.RN ---
LEFT MESSAGE WITH [facility] TO CALL US WITH A STATUS UPDATE ON PT
--- NOTE | 2018-11-18 09:48 | ED.RN ---
pt very anxious and pacing in room. pt copperative and needs reassurance that she is not dying.
[2018-11-18] MEDS: Midazolam 2 MG/2 ML Syringe IM (11:35)
[2018-11-18] MEDS: Haloperidol Lactate 5 MG/ML Vial IM (11:35)
== END 2018-11-18 12:03 | disposition short-term general hospital (02) ==
PROVIDERS: Emergency Provider Emergency Medicine; Family Provider Family Medicine; PCP Family Medicine
DX: F22 Delusional disorders (principal); K59.00 Constipation, unspecified; E78.00 Pure hypercholesterolemia, unspecified
CPT/HCPCS: 36415; 80048; 80076; 80307; 80320; 81001; 84443; 85025; 93005; 96372; 99285; G0480; J3486

== ENCOUNTER → 2020-07-17 15:58 | Outpatient (CLI) | payer OTHER, SELFPAY ==
[2018-11-18 00:47] VITALS: BMI 32.8
[2020-07-17 18:33] LABS: AST(SGOT) 14 U/L (15-37); Alanine Aminotransfer ALT/SGPT 23 U/L (13-56); Cholesterol 177 mg/dL (200); High Density Lipoprotein 58 mg/dL; T4 Total, Thyroxin 8.8 ug/dL (4.8-13.9); Thyroid Stim Hormone (TSH) 1.64 uIU/mL (0.358-3.74); Triglycerides 185 mg/dL; Very Low Density Lipoprotein 37 mg/dL (5-40)
== END ==
PROVIDERS: PCP Family Medicine; Referring Provider Family Medicine; Visit Provider Family Medicine
DX: E78.5 Hyperlipidemia, unspecified (principal); E03.9 Hypothyroidism, unspecified
CPT/HCPCS: 36415; 80061; 84436; 84443; 84450; 84460

== ENCOUNTER → 2021-06-08 14:53 | Outpatient (CLI) | payer MEDICARE, SELFPAY ==
[2018-11-18 00:47] VITALS: BMI 32.8
[2021-06-08 18:03] LABS: AST(SGOT) 17 U/L (15-37); Alanine Aminotransfer ALT/SGPT 29 U/L (13-56); Cholesterol 172 mg/dL (200); High Density Lipoprotein 59 mg/dL; T4 Total, Thyroxin 11.2 ug/dL (4.8-13.9); Triglycerides 145 mg/dL; Very Low Density Lipoprotein 29 mg/dL (5-40)
== END ==
PROVIDERS: PCP Family Medicine; Visit Provider Family Medicine
DX: E78.5 Hyperlipidemia, unspecified (principal); E03.9 Hypothyroidism, unspecified
CPT/HCPCS: 36415; 80061; 84436; 84443; 84450; 84460

== ENCOUNTER → 2021-06-26 14:25 | Outpatient (CLI) | payer MEDICARE, OTHER, SELFPAY ==
[2018-11-18 00:47] VITALS: BMI 32.8
--- NOTE | 2021-06-26 14:29 | BI_ITS ---
MAMMOGRAPHY - BILATERAL SCREENING REASON FOR EXAM: Female, 66 years old. Routine annual screening examination. PERTINENT HISTORY: Screening TECHNIQUE: Digital bilateral breast esha (3D mammographic acquisition) in the CC and MLO projections. 2-D mediolateral oblique (MLO) and craniocaudad (CC) views of both breasts were obtained. CAD: Full Field Digital Mammography with Computer Added Detection was performed. COMPARISON: 10/24/2017 FINDINGS: Breast Composition: Dense There are no dominant masses or suspicious calcifications. No other significant abnormalities are identified. BI/SCREENING MAMM (CAD), BILAT IMPRESSION: Stable bilateral screening mammogram. Yearly follow-up mammogram recommended. (A) ASSESSMENT CATEGORY: BIRADS Category 1: Negative. A letter regarding these results will be sent to the patient by the facility within 30 days. Approximately 10% of breast cancers are not detected by mammography. A normal mammogram should not delay biopsy of a clinically suspicious abnormality. [id number] Electronically Signed: Julián Mercado DO at 15:17 EDT Tel , Service support ,
--- NOTE | 2021-06-26 14:38 | BD_ITS ---
STUDY: DUAL ENERGY X-RAY ABSORPTIOMETRY / DXA REASON FOR EXAM: Female, 66 years old. 733.00OsteoporosisBONE DENSITY REASON FOR EXAM TECHNIQUE: Bone Mineral Density (BMD) measurements of lumbar spine and bilateral hips were obtained. COMPARISON: None. FINDINGS: Lumbar Spine (L1-L4): g/cm2 (1.041) / T-score (-0.1) / Z-score (1.7) Findings are suggestive of normal bone density with a low fracture risk. Left Femur Total: g/cm2 (0.869) / T-score (-0.6) / Z-score (0.6) Left Femoral Neck: g/cm2 (0.738) / T-score (-1.0) / Z-score (0.5) Right Femur Total: g/cm2 (0.901) / T-score (-0.3) / Z-score (0.9) Right Femoral Neck: g/cm2 (0.732) / T-score (-1.1) / Z-score (0.5) BD/Dexa Bone Density Study IMPRESSION: The patient is considered osteopenic as outlined below according to World Silvestre Organization (WHO) criteria with a low fracture risk. Reference Information: The T-score is the number of standard deviations above or below the standard which is normal for young adults at their peak bone mineral density. The World Health Organization (WHO) interprets the T-scores as follows: Above -1 Normal bone density Between -1 and -2.5 Osteopenia Equal to / or below -2.5 Osteoporosis As a practical clinical guideline, osteopenia may be graded as follows: Mild -1 through -1.5 Moderate -1.6 through -2.0 Severe -2.1 through -2.4 The Z-score is the number of standard deviations above or below age-matched controls. A Z-score of less than -1.5 would be considered abnormal. References: 1. NIH Osteoporosis and Related Bone Diseases www osteo.org 2. International Society for Clinical Densitometry www iscd.org 3. National Osteoporosis Foundation www nof.org Electronically Signed: Rickie Pepper MD at 14:47 EDT , Service support ,
== END ==
PROVIDERS: PCP Family Medicine; Referring Provider Family Medicine; Visit Provider Family Medicine
DX: Z12.31 Encounter for screening mammogram for malignant neoplasm of breast (principal); N95.9 Unspecified menopausal and perimenopausal disorder
CPT/HCPCS: 77067; 77080

== ENCOUNTER → 2022-04-25 | Outpatient (CLI) | payer MEDICARE, OTHER, SELFPAY ==
--- NOTE | 2022-04-25 14:00 | POL_PTH ---
PATIENT: [facility]NAN [id number] AGE/SX: 67/F ROOM: RE04/25/[address]: Dr. Yong Wiggins MD : [id number] BED: DIS: 04/25/2022 SPEC #: [id number] RECD: 04/25/22 15:15 STATUS: MICHAEL JESSICAJazmyn #: [id number] PARVEEN: 04/25/22 14:[address]: Yong Wiggins DEPT: SURGICAL PATHOLOGY RECD BY: Iris Greenwood ENTERED: 04/26/22 08:39 SP TYPE: Polyp OTHR DR: Dr. 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 See comment. SJ:billie 04/29/2022 COMMENT Clinical correlation and appropriate follow up are necessary. MICROSCOPIC DESCRIPTION Slides are reviewed. GROSS DESCRIPTION Received in fixative is one container labeled with the patient's name and designated ear polyp. The specimen consists of a single elongated fragment of urbina tissue measuring 0.6 x 0.2 x 0.1 cm. The specimen is totally submitted in one cassette. / AM:billie 04/26/2022 TC:5 CPT: 26711
== END | disposition home or self-care (01) ==
PROVIDERS: PCP Family Medicine; Visit Provider Otolaryngology
DX: H74.41 Polyp of right middle ear (principal)
CPT/HCPCS: 88304; 88305

== ENCOUNTER 2022-07-15 20:00 | Emergency (ER) | payer MEDICARE, OTHER, SELFPAY ==
[2022-07-15 20:01] VITALS: BP 221/113; PULSE 114; RESP 18; TEMP 36.2; O2SAT 97; BMI 33.6
--- NOTE | 2022-07-15 20:37 | EX.ED.DYSGE1 ---
HPI History of Present Illness Chief Complaint: Anxiety Informant: patient Narrative Narrative: Patient presents with mild anxiety, insomnia and concern for COVID. Patient started to have some slightly softer bowel movements today. But she has been eating drinking and having no nausea vomiting or pain. 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 She wanted to make sure she did not have COVID. She tried to get a COVID test at several spots but was too late. She then got very anxious. She decided to come in here. She does have a history of anxiety. She is also concerned because last night she did not sleep more than about 2 or 3 hours. She had an episode many years ago when she was being weaned off Valium. She got very anxious did not sleep and had hallucinations and had to be admitted for 5 days. She is not having hallucinations now. She has not used benzos since then. She did not want that to happen. She has not been having coughing runny nose sore throat. [facility] Medical History History of cancer History of cervical dysplasia Home Medications fluticasone propionate 50 mcg/actuation nasal spray,suspension 1 spray DAILY 06/10/15 [History Last Taken Unknown] levothyroxine 100 mcg tablet 100 mcg PO DAILY 06/10/15 [History Last Taken Unknown] loratadine 10 mg tablet (Allergy Relief (loratadine)) 10 mg PO DAILY 06/10/15 [History Last Taken Unknown] omeprazole 10 mg capsule,delayed release 20 mg PO DAILY 06/10/15 [History Last Taken Unknown] estradiol 1 mg tablet 1 mg PO QODAY 05/07/18 [History Last Taken Unknown] atorvastatin 20 mg tablet 20 mg PO QHS 07/26/18 [History Last Taken Unknown] imipramine HCl 25 mg tablet 100 mg PO QHS 07/26/18 [History Last Taken Unknown] sertraline 50 mg tablet 50 mg PO DAILY 11/18/18 [History Last Taken Unknown] azelastine 205.5 mcg (0.15 %) nasal spray 2 spray intranasal DAILY #30 mL 11/10/21 [Rx Last Taken Unknown] Allergy/AdvReac Type Severity Reaction Status Date / Time hydrocodone bitartrate Allergy Anaphylaxis Verified 07/15/22 20:06 [From Vicodin] Surgical History History of hysterectomy History of tonsillectomy Social History Smoking Status: Never smoker alcohol intake: never substance use type: does not use ROS ROS ED Constitutional Constitutional ED: Denies chills, fever(s), subjective or sweats Eyes Eyes: Denies change in vision ENT ENT ED: Denies ear pain, rhinorrhea or sore throat Cardiovascular Cardiovascular: Denies chest pain or palpitations Respiratory/Chest Respiratory/Chest: Denies cough, dyspnea or sputum Gastrointestinal Gastrointestinal: Reports diarrhea; Denies abdominal pain, constipation, melena, nausea or vomiting Genitourinary Genitourinary ED: Denies dysuria or hematuria Musculoskeletal Musculoskeletal: Denies arthralgias or myalgias Integumentary Denies rash Neurologic Neurologic: Denies headache(s), paresthesias or weakness Psychiatric Psychiatric: Reports anxiety; Denies depression, suicidal ideation or suicidal thoughts Endocrine Endocrinology: Denies polydipsia or polyuria Hematologic/Lymphatic Hematologic/Lymphatic: Denies easy bleeding or easy bruising Allergic/Immunologic Allergic/Immunologic ED: Denies urticaria EXAM Physical Exam Const Vital Signs: 07/15/22 20:01 07/15/22 20:45 07/15/22 20:45 Temperature 97.2 F L Temperature Source Temporal Pulse Rate 114 H 110 H Respiratory Rate 18 Blood Pressure 221/113 H 189/100 H 189/100 H Blood Pressure Mean 149 129 129 Pulse Ox 97 Oxygen Delivery Method Room Air Positive well nourished and well developed General Appearance ED: well developed and NAD; Negative for pallor HEENT Reports moist mucous membranes Eyes PERRL and EOMs intact bilaterally General Eye ED: Negative for scleral icterus Neck no lymphadenopathy Resp normal respiratory effort and clear to auscultation bilaterally Auscultation: Negative for rales, rhonchi or wheezes Cardio regular rate, regular rhythm and no murmurs GI normal to inspection, nondistended, normoactive bowel sounds and non-tender Palpation: soft Back/Spine no CVA tenderness Extremity General Extremety ED: Negative for edema or tenderness General Extremity: Negative for edema Neuro oriented x3 Sensorium / Orientation: alert; Negative for lethargic or stuporous Psych mental status grossly normal Psych Narrative: Patient has linear thinking. She is a bit anxious. But there is no paranoia. There is no hallucinations. She has reasonable concerns. She seems to be reassured when I explained that her admission was likely due to withdrawal from Valium that she had been on 30 years. Her admission to the hospital before was likely would not do to poor sleep. The poor sleep may have been due from Valium withdrawal though. Skin no rashes or lesions noted General Skin Exam: Negative for jaundice or pallor MDM MDM MDM Narrative Medical decision making narrative: I explained to the patient we can send off a COVID test. She stopped and bought some melatonin. We discussed timing and dosage of this. She cannot take Benadryl as it causes her significant anxiety. I would like to avoid benzodiazepines on her. We will also recheck her blood pressure that is elevated at this time. We repeat her blood pressure. Is 189/100. This is better. But this requires follow-up. It does not require acute treatment. Discharge Plan Triage Chief Complaint: Anxiety ED Provider: Rashaad Snow Dx/Rx/DC Orders Clinical Impression: Insomnia, Encounter for screening for COVID-19, History of anxiety Instructions: ED Insomnia Prescriptions: No Action azelastine 205.5 mcg (0.15 %) spray,non-aerosol 2 spray intranasal DAILY Qty: 30 0RF Rx Instructions: administer into each nostril once daily omeprazole 10 MG capsule 20 mg PO DAILY fluticasone propionate 1 SPRAY Nasal.Sry 1 spray NASAL DAILY loratadine [Allergy Relief (loratadine)] 10 MG tablet 10 mg PO DAILY levothyroxine 100 MCG tablet 100 mcg PO DAILY estradiol 1 MG tablet 1 mg PO QODAY Label Comments: atorvastatin 20 MG tablet 20 mg PO QHS imipramine HCl 25 MG tablet 100 mg PO QHS sertraline 50 MG tablet 50 mg PO DAILY Label Comments: TAKE 1/2 TABLET BY MOUTH DAILY FOR 8 DAYS THEN INCREASE TO 1 TABLET DAILY Primary Care Provider: Barbara Velazquez Referrals: Barbara Velazquez MD [Primary Care Provider] - 3-5 Days if not improving Disposition Disposition: Home, Self Care
[2022-07-15 20:45] VITALS: BP 189/100; PULSE 110
== END 2022-07-15 21:12 | disposition home or self-care (01) ==
PROVIDERS: Emergency Provider Emergency Medicine; PCP Family Medicine; Visit Provider Emergency Medicine
DX: F19.939 Other psychoactive substance use, unspecified with withdrawal, unspecified (principal); F41.9 Anxiety disorder, unspecified; G47.00 Insomnia, unspecified; Z20.822 Contact with and (suspected) exposure to COVID-19; Z79.899 Other long term (current) drug therapy
CPT/HCPCS: 87635; 99282; A4216; U0003; U0005

== ENCOUNTER 2022-09-29 18:37 | Emergency (ER) | payer MEDICARE, OTHER, SELFPAY ==
[2022-09-29 18:39] VITALS: BP 179/88; PULSE 85; RESP 14; TEMP 36.3; O2SAT 99; BMI 47.3
--- NOTE | 2022-09-29 19:02 | EDS_ITS ---
HPI History of Present Illness Chief Complaint: Upper Extremity Injury Detail of Chief Complaint: Right shoulder/arm pain Informant: patient Occured/Mechanism Mechanism/Context: Yes fall and Yes same level fall Comment: Tripped over her audio cable and fell onto right upper extremity Onset/Context/Timing Context: Sudden Onset Quality of Pain: - (Severe spasming pain) Location: Proximal right humerus/right shoulder region Current Severity: Mild Maximum Severity: Severe Worsened by: Nothing specific and movement Associated Symptoms Associated Symptoms: Positive for Loss of Funtion; Negative for Parasthesia or Weakness Narrative Narrative: Patient is a 67-year-old [id number] woman who had a mechanical fall onto her right upper extremity. She complains of pain in the shoulder region. She denies paresthesia, anesthesia medics. Denies head trauma. Denies neck pain. Denies cardiac respiratory symptoms. Tetanus Immunization: 5-10 years Prior similar symptoms: No Recent Illness/Hospitalization: No [facility] Medical History History of cancer History of cervical dysplasia Panic disorder Home Medications fluticasone propionate 50 mcg/actuation nasal spray,suspension 1 spray DAILY 06/10/15 [History Last Taken Unknown] levothyroxine 100 mcg tablet 100 mcg PO DAILY 06/10/15 [History Last Taken Unknown] loratadine 10 mg tablet (Allergy Relief (loratadine)) 10 mg PO DAILY 06/10/15 [History Last Taken Unknown] omeprazole 10 mg capsule,delayed release 20 mg PO DAILY 06/10/15 [History Last Taken Unknown] estradiol 1 mg tablet 1 mg PO QODAY 05/07/18 [History Last Taken Unknown] atorvastatin 20 mg tablet 20 mg PO QHS 07/26/18 [History Last Taken Unknown] imipramine HCl 25 mg tablet 100 mg PO QHS 07/26/18 [History Last Taken Unknown] sertraline 50 mg tablet 50 mg PO DAILY 11/18/18 [History Last Taken Unknown] azelastine 205.5 mcg (0.15 %) nasal spray 2 spray intranasal DAILY #30 mL 11/10/21 [Rx Last Taken Unknown] Allergy/AdvReac Type Severity Reaction Status Date / Time hydrocodone bitartrate Allergy Anaphylaxis Verified 07/15/22 20:06 [From Vicodin] Surgical History History of hysterectomy History of tonsillectomy Social History (Updated 09/29/22 @ 19:[address] Rodney Taylor MD) household members: spouse Smoking Status: Never smoker alcohol intake: never substance use type: does not use ROS ROS ED Eyes Eyes: Denies blurry vision, change in vision or diplopia ENT ENT ED: Denies ear pain, rhinorrhea or sore throat Cardiovascular Cardiovascular: Denies chest pain or palpitations Respiratory/Chest Respiratory/Chest: Denies cough or dyspnea Gastrointestinal Gastrointestinal: Denies nausea or vomiting Musculoskeletal Musculoskeletal: Reports other Details: Documented HPI narrative ; Denies back pain, myalgias or neck pain Neurologic Neurologic: Denies paresthesias or weakness Hematologic/Lymphatic Hematologic/Lymphatic: Denies easy bleeding or easy bruising EXAM Physical Exam Const Vital Signs: 09/29/22 18:39 Temperature 97.3 F L Temperature Source Temporal Pulse Rate 85 Respiratory Rate 14 Blood Pressure 179/88 H Blood Pressure Mean 118 Pulse Ox 99 Oxygen Delivery Method Room Air Positive well nourished and well developed Constitutional Narrative: Patient screams out and states she has spasms. General Appearance ED: well developed; Negative for cyanotic or diaphoretic HEENT Reports moist mucous membranes HEENT Narrative: Ears normal without evidence of trauma. She notes a facial trauma. No evidence of head trauma. Nares patent. No septal deviation hematoma. normocephalic and atraumatic Eyes PERRL and EOMs intact bilaterally Neck full ROM and supple Resp normal respiratory effort and clear to auscultation bilaterally Cardio regular rate, regular rhythm, S1 normal heart sound, S2 normal heart sound and no murmurs GI non-tender, non-distended and no masses Auscultation: normoactive bowel sounds Back/Spine Cervical Spine: Negative for cervical spine tenderness Extremity normal to inspection; Negative for full ROM Extremity Narrative: There is no pain the patient over the phalanges, metacarpal bones or carpal bones. Is no pain the patient over the distal radius or ulna. There is no pain the patient with lateral medial epicondyle, electron process or radial head. Median, radial and ulnar function intact. Neuro oriented x3, CN's II-XII intact bilaterally, no focal motor deficits and no sensory deficits noted Psych Psych Narrative: Patient apologizes and he fills out in pain and then apologizes. Skin Lesions: no lesions Rashes: no rashes MDM MDM MDM Narrative Medical decision making narrative: IV was established. Patient was treated with IV fentanyl based on her allergies and Zofran for nausea. X-ray of the right shoulder was obtained. Radiography Diagnostic Testin view x-ray of the right shoulder was obtained and reveals a 100% displaced fracture at the surgical neck. There is slight bayonet apposition. The humeral head is not dislocated. Call was placed to Dr. Jarquin since she will need operative intervention. Treatment and Re-Evaluation Narrative: Patient received fentanyl in the department and a fentanyl patch. She was referred to Dr. Jarquin. He reviewed the x-ray agrees with assessment and treatment plan. Discharge Plan Triage Chief Complaint: Upper Extremity Injury ED Provider: Rodney Taylor Dx/Rx/DC Orders Clinical Impression: Displaced fracture of proximal end of right humerus Prescriptions: No Action azelastine 205.5 mcg (0.15 %) spray,non-aerosol 2 spray intranasal DAILY Qty: 30 0RF Rx Instructions: administer into each nostril once daily omeprazole 10 MG capsule 20 mg PO DAILY fluticasone propionate 1 SPRAY Nasal.Sry 1 spray NASAL DAILY loratadine [Allergy Relief (loratadine)] 10 MG tablet 10 mg PO DAILY levothyroxine 100 MCG tablet 100 mcg PO DAILY estradiol 1 MG tablet 1 mg PO QODAY Label Comments: atorvastatin 20 MG tablet 20 mg PO QHS imipramine HCl 25 MG tablet 100 mg PO QHS sertraline 50 MG tablet 50 mg PO DAILY Label Comments: TAKE 1/2 TABLET BY MOUTH DAILY FOR 8 DAYS THEN INCREASE TO 1 TABLET DAILY Primary Care Provider: Barbara Velazquez Referrals: Barbara Vealzquez MD [Primary Care Provider] - John Jarquin DO [Med Staff - Active Staff] - 2 Days Disposition Disposition: Home, Self Care
--- NOTE | 2022-09-29 19:40 | ED.RN ---
This nurse went to start pt's iv to give her iv fentanyl, however pt was hesitate and wanted to try to get xray without pain medication. will hold on to fentanyl until pt attempts to get xray, pt struggles to move arm due to pain. xray made aware.
--- NOTE | 2022-09-29 20:09 | RAD_ITS ---
INDICATION: Injury/Pain EXAMINATION/TECHNIQUE: X-RAY - RIGHT XR Humerus Min 2 Views 4 VIEWS COMPARISON: None. FINDINGS: Acute, comminuted fracture of the humeral head and neck with 4 cm medial displacement of the humeral shaft relative to the head. Nondisplaced fracture of the greater tuberosity. Cortical fracture fragment of the femoral head is projected over the humeral head. Joint spaces are well-maintained. Normal alignment. Soft tissues are unremarkable. No radiopaque foreign body or soft tissue gas. RAD/Humerus min 2 Views IMPRESSION: Acute, comminuted fracture of the humeral head and neck. Consider CT of the shoulder if required for surgical planning. Electronically Signed: Heena Diaz MD at 21:31 EST Reading Location ID and State: [id number] / Tel , Service support ,
[2022-09-29] MEDS: fentaNYL 100 MCG/2 ML Ampul 50 MCG IV (20:32)
[2022-09-29 21:30] VITALS: BP 152/74; PULSE 72; RESP 16; O2SAT 95
--- NOTE | 2022-09-29 21:40 | ED.RN ---
own the bone information did not get to pt at discharge. telephone call made to pt's bill with that information explained via phone by this nurse.
== END 2022-09-29 21:40 | disposition home or self-care (01) ==
PROVIDERS: Emergency Provider Emergency Medicine; PCP Family Medicine; Visit Provider Emergency Medicine
DX: S42.201A Unspecified fracture of upper end of right humerus, initial encounter for closed fracture (principal); W18.30XA Fall on same level, unspecified, initial encounter
CPT/HCPCS: 73060; 99285; A4216

== ENCOUNTER → 2022-10-02 | Outpatient (CLI) | payer MEDICARE, OTHER, SELFPAY ==
--- NOTE | 2022-10-02 15:23 | CT_ITS ---
EXAM: CT RIGHT UPPER EXTREMITY WITHOUT INTRAVENOUS CONTRAST CLINICAL INDICATION: 2 PART DOSPLACED FX R HUMERUS TECHNIQUE: Helically acquired images were obtained of the right upper extremity without intravenous contrast. 2-D reformats were performed by the technologist. This CT exam was performed using one or more of the following dose reduction techniques: automated exposure control, adjustment of the mA and/or kV according to patient size, and/or use of iterative reconstruction technique. This report was created using [employer] report generation technology. RADIATION DOSE: CTDIvol = 27.03 mGy, DLP = 760.44 mGy-cm COMPARISON: XR 09/29/2022 FINDINGS: BONES/JOINTS: Comminuted fracture of the right proximal humerus. Distal fracture fragment is displaced anterior and medially. There is limb foreshortening. No dislocation. No sclerotic or destructive changes. SOFT TISSUES: Unremarkable. No soft tissue swelling or gas. No radiopaque foreign body. CT/Extremity Upper without Contra IMPRESSION: Comminuted fracture of the right proximal humerus. Distal fracture fragment is displaced anterior and medially. Electronically Signed: Gonzalo Hunter MD at 18:53 EST ,
== END | disposition home or self-care (01) ==
LOC: CT 15:22
PROVIDERS: PCP Family Medicine; Referring Provider Physician Assistant Surgical; Visit Provider Physician Assistant Surgical
DX: S42.221A 2-part displaced fracture of surgical neck of right humerus, initial encounter for closed fracture (principal)
CPT/HCPCS: 73200

== ENCOUNTER 2023-01-06 15:09 | Outpatient (CLI) | payer MEDICARE, OTHER, SELFPAY ==
[2023-01-06 18:28] LABS: Albumin, Serum 3.5 g/dL (3.2-5.0); Anion Gap 10 (5-15); BUN 16 mg/dL (7-18); Calcium,Total 9.8 mg/dL (8.5-10.1); Chloride 104 mmol/L (98-107); Creatinine, Serum 0.89 mg/dL (0.55-1.02); EST Glomerular Filtration Rate 67 mL/min (>60); Est Glom Filt Rate - Afr Amer 82 mL/min (>60); Glucose 105 mg/dL (74-106); Potassium 4.3 mmol/L (3.5-5.1); Sodium Level 136 mmol/L (136-145)
[2023-01-06 18:56] LABS: Vitamin D,25 Hydroxy 25.7 ng/mL
== END 2023-01-06 23:59 | disposition home or self-care (01) ==
LOC: MFPLAB 15:11
PROVIDERS: PCP Family Medicine; Visit Provider Student in an Organized Health Care Education/Training Program
DX: Z01.812 Encounter for preprocedural laboratory examination (principal); E55.9 Vitamin D deficiency, unspecified
CPT/HCPCS: 36415; 80048; 82040; 82306

== ENCOUNTER → 2023-04-07 | Outpatient (CLI) | payer MEDICARE, OTHER, SELFPAY ==
--- NOTE | 2023-04-07 16:42 | CT_ITS ---
EXAM: CT RIGHT UPPER EXTREMITY WITHOUT INTRAVENOUS CONTRAST, SHOULDER CLINICAL INDICATION: SHOULDER FX TECHNIQUE: Helically acquired images were obtained of the right shoulder without intravenous contrast. 2-D reformats were performed by the technologist. CTDIvol = ( 31.09 ) mGy, DLP = ( 720.57 ) mGycm This CT exam was performed using one or more of the following dose reduction techniques: automated exposure control, adjustment of the mA and/or kV according to patient size, and/or use of iterative reconstruction technique. COMPARISON: No relevant prior studies available. 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 Moderate hypertrophic degenerative changes of the acromioclavicular joint. Moderate degenerative changes of the glenohumeral joint. No acute fracture. SOFT TISSUES: Unremarkable. No soft tissue swelling or gas. No radiopaque foreign body. No soft tissue hemorrhage and hematoma. No other focal soft tissue abnormalities. 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 Electronically Signed: Dionte Franco MD at 21:36 EDT ,
== END | disposition home or self-care (01) ==
LOC: CT 16:39
PROVIDERS: PCP Family Medicine; Referring Provider Student in an Organized Health Care Education/Training Program; Visit Provider Student in an Organized Health Care Education/Training Program
DX: S42.221D 2-part displaced fracture of surgical neck of right humerus, subsequent encounter for fracture with routine healing (principal)
CPT/HCPCS: 73200

== ENCOUNTER → 2023-05-07 | Outpatient (CLI) | payer MEDICARE, OTHER, SELFPAY | END | disposition home or self-care (01) | LOC: MFPLAB 11:24 | PROVIDERS: PCP Family Medicine; Visit Provider Family Medicine | DX: E55.9 Vitamin D deficiency, unspecified (principal) | CPT/HCPCS: 36415; 82306 ==

== ENCOUNTER → 2023-05-30 | Outpatient (CLI) | payer MEDICARE, OTHER, SELFPAY ==
--- NOTE | 2023-05-30 13:58 | BI_ITS ---
MAMMOGRAPHY - BILATERAL SCREENING REASON FOR EXAM: Female, 68 years old. Routine annual screening examination. PERTINENT HISTORY: Grandmother with breast cancer. TECHNIQUE: Digital bilateral breast karen (3D mammographic acquisition) in the CC and MLO projections. 2-D mediolateral oblique (MLO) and craniocaudad (CC) views of both breasts were obtained. CAD: Full Field Digital Mammography with Computer Added Detection was performed. COMPARISON: Comparison is made with prior study June 26, 2021 and October 24, 2017. FINDINGS: Breast Composition: The breasts are heterogeneously dense, which may obscure small masses. There are no dominant masses or suspicious calcifications. Stable small benign-appearing bilateral axillary lymph nodes. No other significant abnormalities are identified. There has been no significant change since the prior study. BI/SCRN MAMM (CAD)W/KAREN BILAT IMPRESSION: Stable bilateral screening mammogram. Yearly follow-up mammogram recommended. (A) ASSESSMENT CATEGORY: BIRADS Category 2: Benign. A letter regarding these results will be sent to the patient by the facility within 30 days. Approximately 10% of breast cancers are not detected by mammography. A normal mammogram should not delay biopsy of a clinically suspicious abnormality. [id number] Electronically Signed: Rickie Pepper MD at 8:43 EDT ,
== END | disposition home or self-care (01) ==
LOC: OPBI 13:54
PROVIDERS: PCP Family Medicine; Referring Provider Nurse Practitioner Family; Visit Provider Nurse Practitioner Family
DX: Z12.31 Encounter for screening mammogram for malignant neoplasm of breast (principal); Z80.3 Family history of malignant neoplasm of breast
CPT/HCPCS: 77063; 77067

== ENCOUNTER → 2024-01-26 | Outpatient (CLI) | payer MEDICARE, OTHER, SELFPAY ==
[2024-01-26 17:35] LABS: Absolute Lymphocyte Count 2.78 X10^3/uL (0.83-4.51); Absolute Neutrophil Count 6.1 X10^3/uL (2.0-7.7); Basophil# 0.07 X10^3/uL; Basophil% 0.7 % (0-1); Eosinophil# 0.16 X10^3/uL; Eosinophils% 1.6 % (0-5); Hematocrit 39.4 % (37-47); Hemoglobin 12.7 g/dL (12.0-15.0); Lymphocyte # 2.78 X10^3/ul (0.83-4.51); Lymphocyte % 28.6 % (19-41); Mean Corp Hgb Conc 32.2 g/dL (32-36); Mean Corpuscular Hgb 29.1 pg (27.0-32.0); Mean Corpuscular Volume 90.4 fL (81-99); Mean Platelet Vol. 10.7 fl (6.2-12.0); Monocyte% 6.2 % (0-10); NRBC Flagged by Analyzer 0 % (0-5); Neutrophil # 6.05 X10^3/uL (2.7-7.7); Neutrophil % 62.3 % (47-70); Platelet Count 349 K/mm3 (150-450); RBC Distribution Width CV 14.1 % (11.6-14.6); RBC Distribution Width SD 46.6 fl (35.1-43.9); Red Blood Count 4.36 M/mm3 (4.2-5.4); White Blood Count 9.7 K/mm3 (4.4-11.0)
[2024-01-26 18:35] LABS: Anion Gap 7 (5-15); BUN 13 mg/dL (7-18); BUN/Creat Ratio 15.5 RATIO (10-20); Calcium,Total 9.2 mg/dL (8.5-10.1); Chloride 106 mmol/L (98-107); Creatinine, Serum 0.84 mg/dL (0.55-1.02); EST Glomerular Filtration Rate 72 mL/min (>60); Est Glom Filt Rate - Afr Amer 87 mL/min (>60); Glucose 109 mg/dL (74-106); Potassium 4.1 mmol/L (3.5-5.1); Sodium Level 139 mmol/L (136-145)
== END | disposition home or self-care (01) ==
LOC: MFPLAB 14:55
PROVIDERS: PCP Family Medicine; Visit Provider Family Medicine
DX: H53.8 Other visual disturbances (principal)
CPT/HCPCS: 36415; 80048; 85025

== ENCOUNTER → 2024-02-06 | Outpatient (CLI) | payer MEDICARE, OTHER, SELFPAY ==
--- NOTE | 2024-02-06 08:40 | CDU_ITS ---
Rt. Velocities/BP Lt. Velocities/BP Prox CCA 116.8/16.8 cm/sec. Prox CCA 141.7/19.4 cm/sec. Mid CCA 95.2/21.5 cm/sec. Mid CCA 105.2/19.4 cm/sec. Dist CCA 87.5/16.0 cm/sec. Dist CCA 99.7/23.0 cm/sec. Prox ICA 68.0/19.7 cm/sec. Prox ICA 125.8/19.9 cm/sec. Mid ICA 94.8/21.7 cm/sec. Mid ICA 96.6/19.9 cm/sec. Dist ICA 80.2/18.1 cm/sec. Dist ICA 100.3/29.0 cm/sec. Rt. ICA/CCA = 1.00. Lt. ICA/CCA = 1.20. Prox ECA 95.3/9.3 cm/sec. Prox ECA 112.5/8.4 cm/sec. Rt. Vert. 69.2/18.1 cm/sec. Lt. Vert. 102.1/21.7 cm/sec. Right Extracranial There is intimal thickening but no significant atherosclerotic plaque noted in the right common carotid artery. There is intimal thickening but no significant atherosclerotic plaque noted in the right internal carotid artery. There is no significant atherosclerotic plaque noted in the right external carotid artery. Antegrade flow is noted in the right vertebral artery. There is heterogeneous, irregular atherosclerotic plaque noted in the right bulb. Left Extracranial There is intimal thickening but no significant atherosclerotic plaque noted in the left common carotid artery. There is intimal thickening but no significant atherosclerotic plaque noted in the left internal carotid artery. There is intimal thickening but no significant atherosclerotic plaque noted in the left external carotid artery. Antegrade flow is noted in the left vertebral artery. Procedure Carotid Duplex [id number]. This is a Carotid Duplex examination using B-mode, color flow and specral Doppler. This is a venous duplex using B-mode, color flow and spectral Doppler. Exam performed in department. VL/Carotid Duplex Ultrasound Interpretation Summary Calcific plaque within the distal right common carotid with shadowing. Intimal thickening of the right internal carotid artery with less than 50% sten osis Less than 50% stenosis right external carotid artery Intimal thickening at the proximal left internal carotid artery with 50 to 69% stenosis far closer to the 50% range. Less than 50% stenosis left external carotid artery Patent antegrade vertebral arteries bilaterally Ordering Physician: Sam Lemus Referring Physician: Sam Lemus Performed By: Anastasia Mulligan, PATRICIO, RVT
--- OUTSIDE RECORDS SUMMARY | 2024-02-06 09:00 | XMS RPT_ITS | CCD ---
Author Name Unknown Address [id number] [place] [address] Organization [facility] Care Team Providers Care Lehr Tender Name Role Phone DR AGGIE SORENSEN MD Primary Care Physician [phone] JOHN BOUCHER DO Attending Unavailable FRANCHESCA ASCENCIO, DR. MARCIAL Primary Care Unavailable JOHN BOUCHER DO Attending Unavailable FRANCHESCA ASCENCIO, DR. MARCIAL Primary Care Unavailable Unavailable Primary Care Provider UnavailTITA Garcia Attending Unavailable ANDRES LOWERY Referring Unavailable Allergies Allergy Classification Reported Allergen(s) Allergy Type Date of Onset Reaction(s) Facility (1 source) Acetaminophen / HYDROcodone; Translations: [acetaminophen-hy drocodone] Drug Allergy throat swelling [facility] (1 source) azelastine; Translations: [azelastine nasal] Drug Allergy jitteriness [facility] (1 source) OTHER; Translations: [OTHER] Propensity to adverse reactions (disorder) 2 [facility] Repository Medications Current Medications Medication Drug Class(es) Dates Sig (Normalized) Sig (Original) acetaminophen 325 mg oral capsule (1 source) Start: 10-03-2022 Tylenol 325 mg oral capsule Dose : 650 mg = 2 cap(s), Oral, QID, PRN as needed for pain Start Date: 10/03/22 Status: Ordered albuterol MDI (90 mcg/inh) CFC free inhalation aerosol (1 source) Start: 10-03-2022 take 2 puff(s) by inhalation every six hours as needed for wheezing albuterol MDI (90 mcg/inh) CFC free inhalation aerosol 2 puff(s), Inhalation, q6h, PRN as needed for wheezing, # 8.5 gram(s), 0 Refill(s) Start Date: 10/03/22 Status: Ordered atorvastatin 20 mg oral tablet (1 source) HMG-CoA Reductase Inhibitor Start: 10-03-2022 atorvastatin 20 mg oral tablet Dose : 20 mg = 1 tab(s), Oral, Daily, 0 Refill(s) Start Date: 10/03/22 Status: Ordered estradiol 1 mg oral tablet (3 sources) Estrogen Start: 10-03-2022 estradiol 1 mg oral tablet Dose : 1 mg = 1 tab(s), Oral, qDay Start Date: 10/03/22 Status: Ordered Completed/Discontinued Medications Medication Drug Class(es) Dates Sig (Normalized) Sig (Original) benoxinate hydrochloride 4 mg/ml / fluorescein sodium 2.5 mg/ml ophthalmic solution (1 source) Diagnostic Dye Start: 12-10-2022 End: 12-11-2022 fluorescein-benoxi bernadine 0.25-0.4 % 1 Drop (FLURESS) diazePAM 5 mg oral tablet (1 source) Benzodiazepine Start: 07-20-2002 VALIUM 5MG TABLET 2.5mg tid 0 07/20/2002 Active Problems Problem Classification Problem Date Documented Da te Episodic/Chronic Cataract (2 sources) Bilateral age-related nuclear cataracts; Translations: [Age-related nuclear cataract, bilateral] Onset: 12-11-2022 Chronic Other eye disorders (2 sources) Fuchs' corneal dystrophy; Translations: [Fuchs' corneal dystrophy of both eyes] Onset: 12-11-2022 Episodic Results Test Name Value Interpretation Reference Range Facil ity Vital Signs Date Time Vital Sign Value Performing Clinician Thuy hamm 10-04-2022 17:30-0500 Diastolic Blood Pressure Non-Invasive 72 1 JOHN DAMONLE DO [facility] 10-04-2022 17:30-0500 Heart rate 104 /min JOHN JOSELE DO [facility] 10-04-2022 17:30-0500 Respiratory rate 22 /min JOHN JOSELE DO [facility] 10-04-2022 17:30-0500 Systolic Blood Pressure Non-Invasive 142 1 JOHN SPITTLE DO [facility] 10-04-2022 17:15-0500 Diastolic Blood Pressure Non-Invasive 68 1 JOHN SPITTLE DO [facility] 10-04-2022 17:15-0500 Heart rate 92 /min JOHN SPITTLE DO [facility] 10-04-2022 17:15-0500 Respiratory rate 19 /min JOHN SPITTLE DO [facility] 10-04-2022 17:15-0500 Systolic Blood Pressure Non-Invasive 97 1 JOHN SPITTLE DO [facility] 10-04-2022 17:00-0500 Diastolic Blood Pressure Non-Invasive 69 1 JOHN SPITTLE DO [facility] 10-04-2022 17:00-0500 Heart rate 91 /min JOHN SPITTLE DO [facility] 10-04-2022 17:00-0500 Respiratory rate 20 /min JOHN SPITTLE DO [facility] 10-04-2022 17:00-0500 Systolic Blood Pressure Non-Invasive 113 1 JOHN SPITTLE DO [facility] 10-04-2022 16:20-0500 Body temperature 98.06 [degF] JOHN SPITTLE DO [facility] 10-04-2022 16:15-0500 Respiratory Rate - Anes 25 br/min JOHN SPITTLE DO [facility] 10-04-2022 16:10-0500 Respiratory Rate - Anes 20 br/min JOHN SPITTLE DO [facility] 10-04-2022 16:05-0500 Respiratory Rate - Anes 20 br/min JOHN SPITTLE DO [facility] 10-04-2022 10:53-0500 Body height 170.2 cm JOHN SPITTLE DO [facility] 10-04-2022 10:53-0500 Body temperature 97.88 [degF] JOHN SPITTLE DO [facility] 10-04-2022 10:53-0500 Body weight 99.5 kg JOHN SPITTLE DO [facility] 10-04-2022 10:53-0500 Heart rate 95 /min JOHN SPITTLE DO [facility] Encounters Encounter Date Encounter Type Care Provider Facility Start: 12-10-2022 End: 12-10-2022 ambulatory TITA GARCIA Facility:[facility] Start: 12-10-2022 End: 12-10-2022 Patient encounter procedure Tita Garcia MD Work Phone: Ophthalmology Procedures Date Procedure Procedure Detail Performing Clinician Start: 12-10-2022 Ophthalmic us dx cor janey pachymetry uni/bi Tita Garcia MD Work Phone: Start: 10-04-2022 Open reduction of fracture with internal fixation JOHN SPITTLE DO Plan of Treatment Date Care Activity Detail Author Start: 11-24-2022 ADVANCE DIRECTIVE DISCUSSION ADVANCE DIRECTIVE DISCUSSION [facility] Start: 11-24-2022 DEPRESSION ASSESSMENT DEPRESSION ASS ESSMENT [facility] Start: 02-03-2021 BONE DENSITY BONE DENSITY [facility] Start: 02-03-2021 PNEUMOCOCCAL: 65+ (1 - PCV) PNEUMOCOCCAL: 65+ (1 - PCV) [facility] Start: 02-03-2006 SHINGRIX VACCINE (1 of 2) SHINGRIX V ACCINE (1 of 2) [facility] Start: 02-03-2001 COLOGUARD (FIT-DNA) COLOGUARD (FIT-D NA) [facility] Start: 02-03-2001 Colonoscopy COLONOSCOPY [facility] Start: 02-03-2001 COLORECTAL CANCER SCREENING COLORECTAL CANCER SCREENING [facility] Start: 02-03-[address] COLONOGRAPHY [facility] Start: 02-03-2001 DIABETES SCREEN DIABETES SCREEN [facility] Start: 02-03-2001 FECAL OCCULT BLOOD FECAL OCCULT BLOO D [facility] Start: 02-03-2001 LIPID SCREEN LIPID SCREEN [facility] Start: 02-03-2001 SIGMOIDOSCOPY SIGMOIDOSCOPY [facility] Start: 1996 Mammography MAMMOGRAM [facility] Start: 02-03-1975 Urine microalbumin profile DTAP,TDAP ,TD (1 - Tdap) [facility] Start: 02-03-1974 HEPATITIS C SCREENING HEPATITIS C SC REENING [facility] Payers Date Payer Category Payer Private Health Insurance [id number] 2021 Private Health Insurance [facility] AARP SUPPLEMENT [id number] 2021-Present [phone] [id number] [place] [address] Indemnity [id number] 2021 Medicare [id number] 2021 Medicare MEDICARE MEDICAR E A AND B [id number] 2021-Present [phone] [place] [address] Medicare [id number] 1955 Unknown [id number] Social History Date Type Detail Facility Start: 10-03-2022 Tobacco smoking status Ex-smoker (fi nding) [facility] Sex Assigned At Female 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 10-04-2022 Functional Status Maintained [facility] Mental Status Date Assessment Result Facility 10-04-2022 Mental Status Orientation Oriented x 4 [facility] 10-04-2022 [facility] 10-04-2022 Mental Status Orientation Asse ssment Oriented x 4 [facility] Clinical Notes 10-04-2022 to 12-10-2022 Tita Garcia MD - 12/10/2022 1:08 PM EST Note Date & Type Note Facility 12-10-2022 Note HNO ID: [id number] Author: Tita Garcia MD Service: ? Author Type: Physician Type: Progress Notes Filed: 12/11/2022 2:34 PM Note Text: Encounter Diagnosis ICD-10-CM 1. Fuchs' corneal dystrophy of both eyes H18.513 fluorescein-benoxinate 0.25-0.4 % 1 Drop (FLURESS) proparacaine 0.5 % 1 Drop (ALCAINE) tropicamide 1 % 1 Drop (MYDRIACYL) PACHYMETRY OU (BOTH EYES) 2. Age-related nuclear cataract of both eyes H25.13 (H18.513) Fuchs' corneal dystrophy of both eyes (primary encounter diagnosis) Comment: 4+ Guttata OD and 3-4+ Guttata OS; mild stromal edema without D folds bullae Plan: Offer option of combined phacoemulsification with Descemet membrane endothelial keratoplasty right eye first At present, patient is minimally symptomatic and plans to defer Can call if she elects proceed with surgery or can follow-up as needed in the future once she feels her vision is at a level that surgery is required (H25.13) Age-related nuclear cataract of both eyes Comment: Nuclear sclerotic cataracts Plan: Mild cataract bilateral. Plan eventual combined sx with DMEK when patient becomes symptomatic. Monitor for now. Follow-up in 1 year or if prefers can see local eye doctor mrx iop dfe ou optovue ou pentacam ou I have confirmed and edited as necessary the relevant ophthalmic history, ROS, and the neuro exam findings as obtained by others. I have seen and examined this patient. I have discussed the case and the management of this patient's care with the Resident/Fellow, if applicable. I also have reviewed and agree with the assessment and plan as stated above and agree with all of its relevant components. Tita Garcia MD [facility] 12-10-2022 History of Presen t illness Narrative Encounter Diagnosis ICD-10-CM 1. Fuchs' corneal dystrophy of both eyes H18.513 fluorescein-benoxinate 0.25-0.4 % 1 Drop (FLURESS) proparacaine 0.5 % 1 Drop (ALCAINE) tropicamide 1 % 1 Drop (MYDRIACYL) PACHYMETRY OU (BOTH EYES) 2. Age-related nuclear cataract of both eyes H25.13 (H18.513) Fuchs' corneal dystrophy of both eyes (primary encounter diagnosis) Comment: 4+ Guttata OD and 3-4+ Guttata OS; mild stromal edema without D folds bullae Plan: Offer option of combined phacoemulsification with Descemet membrane endothelial keratoplasty right eye first At present, patient is minimally symptomatic and plans to defer Can call if she elects proceed with surgery or can follow-up as needed in the future once she feels her vision is at a level that surgery is required (H25.13) Age-related nuclear cataract of both eyes Comment: Nuclear sclerotic cataracts Plan: Mild cataract bilateral. Plan eventual combined sx with DMEK when patient becomes symptomatic. Monitor for now. Follow-up in 1 year or if prefers can see local eye doctor mrx iop dfe ou optovue ou pentacam ou I have confirmed and edited as necessary the relevant ophthalmic history, ROS, and the neuro exam findings as obtained by others. I have seen and examined this patient. I have discussed the case and the management of this patient's care with the Resident/Fellow, if applicable. I also have reviewed and agree with the assessment and plan as stated above and agree with all of its relevant components. Tita Garcia MD documented in this encounter [facility] 10-04-2022 Hospital Discharg e instructions Patient Education 10/04/2022 16:46:10 Humerus Fracture Treated With ORIF, Care After Humerus Fracture Treated With ORIF, Care After This sheet gives you information about how to care for yourself after your procedure. Your health care provider may also give you more specific instructions. If you have problems or questions, contact your health care provider. What can I expect after the procedure? After the procedure, it is common to have: Pain. Swelling. Stiffness. Small amount of fluid from the incision. Follow these instructions at home: Bathing Do not take baths, swim, or use a hot tub until your health care provider approves. Ask your health care provider if you can take showers. You may only be allowed to take sponge baths. If your sling or immobilizer is not waterproof, cover it with a watertight covering when you take a bath or a shower. Keep the bandage (dressing) dry until your health care provider says it can be removed. If you have a sling or a shoulder immobilizer: Wear the sling or immobilizer as told by your health care provider. Remove it only as told by your health care provider. Loosen the sling or immobilizer if your fingers tingle, become numb, or turn cold and blue. Keep the sling or immobilizer clean. If the sling or immobilizer is not waterproof: ?Do not let it get wet. ?Cover it with a watertight covering when you take a bath or a shower. Incision care Follow instructions from your health care provider about how to take care of your incision. Make sure you: ?Wash your hands with soap and water before you change your dressing. If soap and water are not available, use hand woodworking belt sander. ?Change your dressing as told by your health care provider. ?Leave stitches (sutures), skin glue, or adhesive strips in place. These skin closures may need to stay in place for 2 weeks or longer. If adhesive strip edges start to loosen and curl up, you may trim the loose edges. Do not remove adhesive strips completely unless your health care provider tells you to do that. Check your incision area every day for signs of infection. Check for: ?Redness. ?More swelling or pain. ?Blood or more fluid. ?Warmth. ?Pus or a bad smell. Managing pain, stiffness, and swelling If directed, put ice on the affected area. ?Put ice in a plastic bag or use the icing device (cold therapy unit) that you were given. Follow instructions from your health care provider about how to use the icing device. ?Place a towel between your skin and the bag or icing device. ?Leave the ice or icing device on for 20 minutes, 2 3 times a day. Move your fingers often to avoid stiffness and to lessen swelling. If told by your health care provider, raise (elevate) the injured area above the level of your heart while you are sitting or lying down. To do this, try putting a few pillows under your arm. Driving Do not drive or use heavy machinery while taking prescription pain medicine. Ask your health care provider when it is safe to drive if you have a sling or immobilizer. Activity Return to your normal activities as told by your health care provider. Ask your health care provider what activities are safe for you. Do exercises as told by your health care provider. Do not lift with your injured arm until your health care provider approves. Avoid pulling and pushing. Follow instructions from your health care provider about: ?Whether you may gently use your hand and elbow immediately after surgery. ?When to start doing gentle range of motion movements with your shoulder and elbow. It is important to do these movements to prevent loss of motion. General instructions Take hgtw-iox-lrfopyh and prescription medicines only as told by your health care provider. Do not use any products that contain nicotine or tobacco, such as cigarettes and e-cigarettes. These can delay bone healing. If you need help quitting, ask your health care provider. If you are taking prescription pain medicine, take actions to prevent or treat constipation. Your health care provider may recommend that you: ?Drink enough fluid to keep your urine pale yellow. ?Eat foods that are high in fiber, such as fresh fruits and vegetables, whole grains, and beans. ?Limit foods that are high in fat and processed sugars, such as fried or sweet foods. ?Take an rvxp-tmu-wsakgzc or prescription medicine for constipation. Keep all follow-up visits as told by your health care provider. This is important. Contact a health care provider if: You have pain that is not helped by medicine. You have a fever. You have redness around your incision. You have more swelling or pain around your incision. You have blood or more fluid coming from your incision. Your incision feels warm to the touch. You have pus or a bad smell coming from your incision or your dressing. You feel faint or light-headed. You develop a rash. Get help right away if: The edges of your incision come apart after the stitches or rigoberto have been taken out. You have trouble breathing. You have numbness or tingling in your hand or fingers. Summary After this procedure, it is common to have some pain, swelling, or stiffness. If your sling or immobilizer is not waterproof, do not let it get wet. Contact your health care provider if you have blood or more fluid coming from your incision. Get medical help right away if you have numbness or tingling in your hands or fingers. This information is not intended to replace advice given to you by your health care provider. Make sure you discuss any questions you have with your health care provider. Document Released: 05/30/2006 Document Revised: 10/23/2018 Document Reviewed: 08/26/2018 [employer] Patient Education 2020 [employer]. 10/04/2022 16:45:28 How to Use an Incentive Spirometer How To Use an Incentive Spirometer An incentive spirometer is a tool that measures how well you are filling your lungs with each breath. Learning to take long, deep breaths using this tool can help you keep your lungs clear and active. This may help to reverse or lessen your chance of developing breathing (pulmonary) problems, especially infection. You may be asked to use a spirometer: After a surgery. If you have a lung problem or a history of smoking. After a long period of time when you have been unable to move or be active. If the spirometer includes an indicator to show the highest number that you have reached, your health care provider or respiratory therapist will help you set a goal. Keep a list (log) of your progress as told by your health care provider. What are the risks? Breathing too quickly may cause dizziness or cause you to pass out. Take your time so you do not get dizzy or light-headed. If you are in pain, you may need to take pain medicine before doing incentive spirometry. It is harder to take a deep breath if you are having pain. How to use your incentive spirometer 1.Sit up on the edge of your bed or on a chair. 2.Hold the incentive spirometer so that it is in an upright position. 3.Before you use the spirometer, breathe out normally. 4.Place the mouthpiece in your mouth. Make sure your lips are closed tightly around it. 5.Breathe in slowly and as deeply as you can through your mouth, causing the piston or the ball to rise toward the top of the chamber. 6.Hold your breath for 3 5 seconds, or for as long as possible. If the spirometer includes a sustainability coach indicator, use this to guide you in breathing. Slow down your breathing if the indicator goes above the marked areas. 7.Remove the mouthpiece from your mouth and breathe out normally. The piston or ball will return to the bottom of the chamber. 8.Rest for a few seconds, then repeat the steps 10 or more times. Take your time and take a few normal breaths between deep breaths so that you do not get dizzy or light-headed. Do this every 1 2 hours when you are awake. 9.If the spirometer includes a goal marker to show the highest number you have reached (best effort), use this as a goal to work toward during each repetition. 10.After each set of 10 deep breaths, cough a few times. This will help to make sure that your lungs are clear. If you have an incision on your chest or abdomen from surgery, place a pillow or a rolled-up towel firmly against the incision when you cough. This can help to reduce pain from coughing. General tips When you become able to get out of bed, walk around often and continue to cough to help clear your lungs. Keep using the incentive spirometer until your health care provider says it is okay to stop using it. If you have been in the hospital, you may be told to keep using the spirometer at home. Contact a health care provider if: You are having difficulty using the spirometer. You have trouble using the spirometer as often as instructed. Your pain medicine is not giving enough relief for you to use the spirometer as told. You have a fever. You develop shortness of breath. Get help right away if: You develop a cough with bloody mucus from the lungs (bloody sputum). You have fluid or blood coming from an incision site after you cough. Summary An incentive spirometer is a tool that can help you learn to take long, deep breaths to keep your lungs clear and active. You may be asked to use a spirometer after a surgery, if you have a lung problem or a history of smoking, or if you have been inactive for a long period of time. Use your incentive spirometer as instructed every 1 2 hours while you are awake. If you have an incision on your chest or abdomen, place a pillow or a rolled-up towel firmly against your incision when you cough. This will help to reduce pain. This information is not intended to replace advice given to you by your health care provider. Make sure you discuss any questions you have with your health care provider. Document Released: 03/22/2008 Document Revised: 12/03/2018 Document Reviewed: 09/23/2018 [employer] Patient Education 2020 [employer]. 10/04/2022 16:45:22 Nausea and Vomiting, Adult Nausea and Vomiting, Adult Nausea is the feeling that you have an upset stomach or that you are about to vomit. Vomiting is when stomach contents are thrown up and out of the mouth as a result of nausea. Vomiting can make you feel weak and cause you to become dehydrated. Dehydration can make you feel tired and thirsty, cause you to have a dry mouth, and decrease how often you urinate. Older adults and people with other diseases or a weak disease-fighting system (immune system) are at higher risk for dehydration. It is important to treat your nausea and vomiting as told by your health care provider. Follow these instructions at home: Watch your symptoms for any changes. Tell your health care provider about them. Follow these instructions to care for yourself at home. Eating and drinking Take an oral rehydration solution (ORS). This is a drink that is sold at pharmacies and retail stores. Drink clear fluids slowly and in small amounts as you are able. Clear fluids include water, ice chips, low-calorie sports drinks, and fruit juice that has water added (diluted fruit juice). Eat bland, fusz-dj-ppfdgh foods in small amounts as you are able. These foods include bananas, applesauce, rice, lean meats, toast, and crackers. Avoid fluids that contain a lot of sugar or caffeine, such as energy drinks, sports drinks, and soda. Avoid alcohol. Avoid spicy or fatty foods. General instructions Take hwea-sbm-dwtehdf and prescription medicines only as told by your health care provider. Drink enough fluid to keep your urine pale yellow. Wash your hands often using soap and water. If soap and water are not available, use hand woodworking belt sander. Make sure that all people in your household wash their hands well and often. Rest at home while you recover. Watch your condition for any changes. Breathe slowly and deeply when you feel nauseated. Keep all follow-up visits as told by your health care provider. This is important. Contact a health care provider if: Your symptoms get worse. You have new symptoms. You have a fever. You cannot drink fluids without vomiting. Your nausea does not go away after 2 days. You feel light-headed or dizzy. You have a headache. You have muscle cramps. You have a rash. You have pain while urinating. Get help right away if: You have pain in your chest, neck, arm, or jaw. You feel extremely weak or you faint. You have persistent vomiting. You have vomit that is bright red or looks like black coffee grounds. You have bloody or black stools or stools that look like tar. You have a severe headache, a stiff neck, or both. You have severe pain, cramping, or bloating in your abdomen. You have difficulty breathing, or you are breathing very quickly. Your heart is beating very quickly. Your skin feels cold and clammy. You feel confused. You have signs of dehydration, such as: ?Dark urine, very little urine, or no urine. ?Cracked lips. ?Dry mouth. ?Sunken eyes. ?Sleepiness. ?Weakness. These symptoms may represent a serious problem that is an emergency. Do not wait to see if the symptoms will go away. Get medical help right away. Call your local emergency services (911 in the [place] Do not drive yourself to the hospital. Summary Nausea is the feeling that you have an upset stomach or that you are about to vomit. As nausea gets worse, it can lead to vomiting. Vomiting can make you feel weak and cause you to become dehydrated. Follow instructions from your health care provider about eating and drinking to prevent dehydration. Take iplq-oma-rlhhblq and prescription medicines only as told by your health care provider. Contact your health care provider if your symptoms get worse, or you have new symptoms. Keep all follow-up visits as told by your health care provider. This is important. This information is not intended to replace advice given to you by your health care provider. Make sure you discuss any questions you have with your health care provider. Document Released: 11/10/2006 Document Revised: 03/03/2020 Document Reviewed: 04/20/2019 [employer] Patient Education 2020 [employer]. 10/04/2022 16:45:17 General Anesthesia, Adult, Care After General Anesthesia, Adult, Care After This sheet gives you information about how to care for yourself after your procedure. Your health care provider may also give you more specific instructions. If you have problems or questions, contact your health care provider. What can I expect after the procedure? After the procedure, the following side effects are common: Pain or discomfort at the IV site. Nausea. Vomiting. Sore throat. Trouble concentrating. Feeling cold or chills. Weak or tired. Sleepiness and fatigue. Soreness and body aches. These side effects can affect parts of the body that were not involved in surgery. Follow these instructions at home: For at least 24 hours after the procedure: Have a responsible adult stay with you. It is important to have someone help care for you until you are awake and alert. Rest as needed. Do not: ?Participate in activities in which you could fall or become injured. ?Drive. ?Use heavy machinery. ?Drink alcohol. ?Take sleeping pills or medicines that cause drowsiness. ?Make important decisions or sign legal documents. ?Take care of children on your own. Eating and drinking Follow any instructions from your health care provider about eating or drinking restrictions. When you feel hungry, start by eating small amounts of foods that are soft and easy to digest (bland), such as toast. Gradually return to your regular diet. Drink enough fluid to keep your urine pale yellow. If you vomit, rehydrate by drinking water, juice, or clear broth. General instructions If you have sleep apnea, surgery and certain medicines can increase your risk for breathing problems. Follow instructions from your health care provider about wearing your sleep device: ?Anytime you are sleeping, including during daytime naps. ?While taking prescription pain medicines, sleeping medicines, or medicines that make you drowsy. Return to your normal activities as told by your health care provider. Ask your health care provider what activities are safe for you. Take qmol-ihh-kszyecq and prescription medicines only as told by your health care provider. If you smoke, do not smoke without supervision. Keep all follow-up visits as told by your health care provider. This is important. Contact a health care provider if: You have nausea or vomiting that does not get better with medicine. You cannot eat or drink without vomiting. You have pain that does not get better with medicine. You are unable to pass urine. You develop a skin rash. You have a fever. You have redness around your IV site that gets worse. Get help right away if: You have difficulty breathing. You have chest pain. You have blood in your urine or stool, or you vomit blood. Summary After the procedure, it is common to have a sore throat or nausea. It is also common to feel tired. Have a responsible adult stay with you for the first 24 hours after general anesthesia. It is important to have someone help care for you until you are awake and alert. When you feel hungry, start by eating small amounts of foods that are soft and easy to digest (bland), such as toast. Gradually return to your regular diet. Drink enough fluid to keep your urine pale yellow. Return to your normal activities as told by your health care provider. Ask your health care provider what activities are safe for you. This information is not intended to replace advice given to you by your health care provider. Make sure you discuss any questions you have with your health care provider. Document Released: 02/16/2002 Document Revised: 11/13/2018 Document Reviewed: 06/26/2018 [employer] Patient Education 2020 [employer] Follow Up Care 10/03/2022 09:34:47 With:JOHN BOUCHER Address: [address] [place] [address], [address] [place] [address]- [phone] Business (1) When:10/16/2022 13:15:00 [facility] 10-04-2022 Note ORIGINAL Images acquired, not reported on this accession number. [facility] 10-04-2022 Note ORIGINAL Images acquired, not reported on this accession number. [facility] 10-04-2022 Summary of episod e note Discharge Instructions Thank you for allowing [facility] to assist you with your healthcare needs. The following is important discharge information regarding your hospital visit. Your Care Team AGGIE SORENSEN MD What to do next Follow Up Appointments Follow Up with JOHN BOUCHER When 10/16/2022 01:15 PM EST Where: [address] [place] [address], [address] [place] [address]- [phone] Business (1) The Following Activity and Diet Have Been Ordered for You Discharge Activity - Ordered -- Follow the post-operative/post-procedure activity instructions provided by your physician's office., 10/04/22 16:39:00 EST Discharge Diet - Ordered -- Follow the post-operative/post-procedure diet instructions provided by your physician's office., 10/04/22 16:39:00 EST The Following Equipment Has Been Ordered for You Discharge Home Equipment Discharge Wound Care - Ordered -- Follow the post-operative/post-procedure wound care instructions provided by your physician's office., 10/04/22 16:39:00 EST Allergies Vicodin (throat swelling) azelastine nasal (jitteriness) Medications Please ask your primary doctor or pharmacist before taking any other medication not listed, including over the counter drugs, herbal medications, vitamins and or supplements as they may interact with your home medications. What How Much When Instructions Last Dose Unchanged acetaminophen (Tylenol 325 mg oral capsule) 2 cap by mouth Four (4) times a day as needed for as needed for pain Unchanged albuterol (albuterol MDI (90 mcg/ inh) CFC free inhalation aerosol) 2 puff(s) by inhalation Every 6 hours as needed for as needed for wheezing Unchanged atorvastatin (atorvastatin 20 mg oral tablet) 1 tab(s) by mouth Every day Unchanged estradiol (estradiol 1 mg oral tablet) 1 tab(s) by mouth Once a day Unchanged levothyroxine 100 Microgram by mouth Once a day Unchanged loratadine (loratadine 10 mg oral tablet) 1 tab(s) by mouth Once a day Unchanged multivitamin with minerals (PreserVision AREDS 2 oral capsule) 1 cap by mouth Every day Unchanged omeprazole (omeprazole 10 mg oral delayed release capsule) 1 cap by mouth Once a day Unchanged oxyCODONE (oxyCODONE 5 mg oral tablet ( IMMEDIATE release )) 1 tab(s) by mouth Every 6 hours as needed for as needed for pain Unchanged sertraline (sertraline 50 mg oral tablet) 0.5 tab(s) by mouth Every day Please take this list to your next doctor s visit. Bring all medications you take, including over the counter medications, herbals and other supplements with you to your doctor s visit. Patients and families are reminded to discard old lists and to update any records with all medication providers or retail pharmacies. Education Materials Humerus Fracture Treated With ORIF, Care After This sheet gives you information about how to care for yourself after your procedure. Your health care provider may also give you more specific instructions. If you have problems or questions, contact your health care provider. What can I expect after the procedure? After the procedure, it is common to have: Pain. Swelling. Stiffness. Small amount of fluid from the incision. Follow these instructions at home: Bathing Do not take baths, swim, or use a hot tub until your health care provider approves. Ask your health care provider if you can take showers. You may only be allowed to take sponge baths. If your sling or immobilizer is not waterproof, cover it with a watertight covering when you take a bath or a shower. Keep the bandage (dressing) dry until your health care provider says it can be removed. If you have a sling or a shoulder immobilizer: Wear the sling or immobilizer as told by your health care provider. Remove it only as told by your health care provider. Loosen the sling or immobilizer if your fingers tingle, become numb, or turn cold and blue. Keep the sling or immobilizer clean. If the sling or immobilizer is not waterproof: ? Do not let it get wet. ? Cover it with a watertight covering when you take a bath or a shower. Incision care Follow instructions from your health care provider about how to take care of your incision. Make sure you: ? Wash your hands with soap and water before you change your dressing. If soap and water are not available, use hand woodworking belt sander. ? Change your dressing as told by your health care provider. ? Leave stitches (sutures), skin glue, or adhesive strips in place. These skin closures may need to stay in place for 2 weeks or longer. If adhesive strip edges start to loosen and curl up, you may trim the loose edges. Do not remove adhesive strips completely unless your health care provider tells you to do that. Check your incision area every day for signs of infection. Check for: ? Redness. ? More swelling or pain. ? Blood or more fluid. ? Warmth. ? Pus or a bad smell. Managing pain, stiffness, and swelling If directed, put ice on the affected area. ? Put ice in a plastic bag or use the icing device (cold therapy unit) that you were given. Follow instructions from your health care provider about how to use the icing device. ? Place a towel between your skin and the bag or icing device. ? Leave the ice or icing device on for 20 minutes, 2 3 times a day. Move your fingers often to avoid stiffness and to lessen swelling. If told by your health care provider, raise (elevate) the injured area above the level of your heart while you are sitting or lying down. To do this, try putting a few pillows under your arm. Driving Do not drive or use heavy machinery while taking prescription pain medicine. Ask your health care provider when it is safe to drive if you have a sling or immobilizer. Activity Return to your normal activities as told by your health care provider. Ask your health care provider what activities are safe for you. Do exercises as told by your health care provider. Do not lift with your injured arm until your health care provider approves. Avoid pulling and pushing. Follow instructions from your health care provider about: ? Whether you may gently use your hand and elbow immediately after surgery. ? When to start doing gentle range of motion movements with your shoulder and elbow. It is important to do these movements to prevent loss of motion. General instructions Take ghbk-vdy-yperwjc and prescription medicines only as told by your health care provider. Do not use any products that contain nicotine or tobacco, such as cigarettes and e-cigarettes. These can delay bone healing. If you need help quitting, ask your health care provider. If you are taking prescription pain medicine, take actions to prevent or treat constipation. Your health care provider may recommend that you: ? Drink enough fluid to keep your urine pale yellow. ? Eat foods that are high in fiber, such as fresh fruits and vegetables, whole grains, and beans. ? Limit foods that are high in fat and processed sugars, such as fried or sweet foods. ? Take an bpxr-etl-cftbtxk or prescription medicine for constipation. Keep all follow-up visits as told by your health care provider. This is important. Contact a health care provider if: You have pain that is not helped by medicine. You have a fever. You have redness around your incision. You have more swelling or pain around your incision. You have blood or more fluid coming from your incision. Your incision feels warm to the touch. You have pus or a bad smell coming from your incision or your dressing. You feel faint or light-headed. You develop a rash. Get help right away if: The edges of your incision come apart after the stitches or rigoberto have been taken out. You have trouble breathing. You have numbness or tingling in your hand or fingers. Summary After this procedure, it is common to have some pain, swelling, or stiffness. If your sling or immobilizer is not waterproof, do not let it get wet. Contact your health care provider if you have blood or more fluid coming from your incision. Get medical help right away if you have numbness or tingling in your hands or fingers. This information is not intended to replace advice given to you by your health care provider. Make sure you discuss any questions you have with your health care provider. Document Released: 05/30/2006 Document Revised: 10/23/2018 Document Reviewed: 08/26/2018 [employer] Patient Education 2020 [employer] How To Use an Incentive Spirometer An incentive spirometer is a tool that measures how well you are filling your lungs with each breath. Learning to take long, deep breaths using this tool can help you keep your lungs clear and active. This may help to reverse or lessen your chance of developing breathing (pulmonary) problems, especially infection. You may be asked to use a spirometer: After a surgery. If you have a lung problem or a history of smoking. After a long period of time when you have been unable to move or be active. If the spirometer includes an indicator to show the highest number that you have reached, your health care provider or respiratory therapist will help you set a goal. Keep a list (log) of your progress as told by your health care provider. What are the risks? Breathing too quickly may cause dizziness or cause you to pass out. Take your time so you do not get dizzy or light-headed. If you are in pain, you may need to take pain medicine before doing incentive spirometry. It is harder to take a deep breath if you are having pain. How to use your incentive spirometer 1. Sit up on the edge of your bed or on a chair. 2. Hold the incentive spirometer so that it is in an upright position. 3. Before you use the spirometer, breathe out normally. 4. Place the mouthpiece in your mouth. Make sure your lips are closed tightly around it. 5. Breathe in slowly and as deeply as you can through your mouth, causing the piston or the ball to rise toward the top of the chamber. 6. Hold your breath for 3 5 seconds, or for as long as possible. If the spirometer includes a sustainability coach indicator, use this to guide you in breathing. Slow down your breathing if the indicator goes above the marked areas. 7. Remove the mouthpiece from your mouth and breathe out normally. The piston or ball will return to the bottom of the chamber. 8. Rest for a few seconds, then repeat the steps 10 or more times. Take your time and take a few normal breaths between deep breaths so that you do not get dizzy or light-headed. Do this every 1 2 hours when you are awake. 9. If the spirometer includes a goal marker to show the highest number you have reached (best effort), use this as a goal to work toward during each repetition. 10. After each set of 10 deep breaths, cough a few times. This will help to make sure that your lungs are clear. If you have an incision on your chest or abdomen from surgery, place a pillow or a rolled-up towel firmly against the incision when you cough. This can help to reduce pain from coughing. General tips When you become able to get out of bed, walk around often and continue to cough to help clear your lungs. Keep using the incentive spirometer until your health care provider says it is okay to stop using it. If you have been in the hospital, you may be told to keep using the spirometer at home. Contact a health care provider if: You are having difficulty using the spirometer. You have trouble using the spirometer as often as instructed. Your pain medicine is not giving enough relief for you to use the spirometer as told. You have a fever. You develop shortness of breath. Get help right away if: You develop a cough with bloody mucus from the lungs (bloody sputum). You have fluid or blood coming from an incision site after you cough. Summary An incentive spirometer is a tool that can help you learn to take long, deep breaths to keep your lungs clear and active. You may be asked to use a spirometer after a surgery, if you have a lung problem or a history of smoking, or if you have been inactive for a long period of time. Use your incentive spirometer as instructed every 1 2 hours while you are awake. If you have an incision on your chest or abdomen, place a pillow or a rolled-up towel firmly against your incision when you cough. This will help to reduce pain. This information is not intended to replace advice given to you by your health care provider. Make sure you discuss any questions you have with your health care provider. Document Released: 03/22/2008 Document Revised: 12/03/2018 Document Reviewed: 09/23/2018 [employer] Patient Education 2020 [employer] Nausea and Vomiting, Adult Nausea is the feeling that you have an upset stomach or that you are about to vomit. Vomiting is when stomach contents are thrown up and out of the mouth as a result of nausea. Vomiting can make you feel weak and cause you to become dehydrated. Dehydration can make you feel tired and thirsty, cause you to have a dry mouth, and decrease how often you urinate. Older adults and people with other diseases or a weak disease-fighting system (immune system) are at higher risk for dehydration. It is important to treat your nausea and vomiting as told by your health care provider. Follow these instructions at home: Watch your symptoms for any changes. Tell your health care provider about them. Follow these instructions to care for yourself at home. Eating and drinking Take an oral rehydration solution (ORS). This is a drink that is sold at pharmacies and retail stores. Drink clear fluids slowly and in small amounts as you are able. Clear fluids include water, ice chips, low-calorie sports drinks, and fruit juice that has water added (diluted fruit juice). Eat bland, wpuo-ul-wligtw foods in small amounts as you are able. These foods include bananas, applesauce, rice, lean meats, toast, and crackers. Avoid fluids that contain a lot of sugar or caffeine, such as energy drinks, sports drinks, and soda. Avoid alcohol. Avoid spicy or fatty foods. General instructions Take bpfo-mmn-jtzkloq and prescription medicines only as told by your health care provider. Drink enough fluid to keep your urine pale yellow. Wash your hands often using soap and water. If soap and water are not available, use hand woodworking belt sander. Make sure that all people in your household wash their hands well and often. Rest at home while you recover. Watch your condition for any changes. Breathe slowly and deeply when you feel nauseated. Keep all follow-up visits as told by your health care provider. This is important. Contact a health care provider if: Your symptoms get worse. You have new symptoms. You have a fever. You cannot drink fluids without vomiting. Your nausea does not go away after 2 days. You feel light-headed or dizzy. You have a headache. You have muscle cramps. You have a rash. You have pain while urinating. Get help right away if: You have pain in your chest, neck, arm, or jaw. You feel extremely weak or you faint. You have persistent vomiting. You have vomit that is bright red or looks like black coffee grounds. You have bloody or black stools or stools that look like tar. You have a severe headache, a stiff neck, or both. You have severe pain, cramping, or bloating in your abdomen. You have difficulty breathing, or you are breathing very quickly. Your heart is beating very quickly. Your skin feels cold and clammy. You feel confused. You have signs of dehydration, such as: ? Dark urine, very little urine, or no urine. ? Cracked lips. ? Dry mouth. ? Sunken eyes. ? Sleepiness. ? Weakness. These symptoms may represent a serious problem that is an emergency. Do not wait to see if the symptoms will go away. Get medical help right away. Call your local emergency services (911 in the [place] Do not drive yourself to the hospital. Summary Nausea is the feeling that you have an upset stomach or that you are about to vomit. As nausea gets worse, it can lead to vomiting. Vomiting can make you feel weak and cause you to become dehydrated. Follow instructions from your health care provider about eating and drinking to prevent dehydration. Take ykrd-kgb-hlreemi and prescription medicines only as told by your health care provider. Contact your health care provider if your symptoms get worse, or you have new symptoms. Keep all follow-up visits as told by your health care provider. This is important. This information is not intended to replace advice given to you by your health care provider. Make sure you discuss any questions you have with your health care provider. Document Released: 11/10/2006 Document Revised: 03/03/2020 Document Reviewed: 04/20/2019 [employer] Patient Education 2020 [employer]. General Anesthesia, Adult, Care After This sheet gives you information about how to care for yourself after your procedure. Your health care provider may also give you more specific instructions. If you have problems or questions, contact your health care provider. What can I expect after the procedure? After the procedure, the following side effects are common: Pain or discomfort at the IV site. Nausea. Vomiting. Sore throat. Trouble concentrating. Feeling cold or chills. Weak or tired. Sleepiness and fatigue. Soreness and body aches. These side effects can affect parts of the body that were not involved in surgery. Follow these instructions at home: For at least 24 hours after the procedure: Have a responsible adult stay with you. It is important to have someone help care for you until you are awake and alert. Rest as needed. Do not: ? Participate in activities in which you could fall or become injured. ? Drive. ? Use heavy machinery. ? Drink alcohol. ? Take sleeping pills or medicines that cause drowsiness. ? Make important decisions or sign legal documents. ? Take care of children on your own. Eating and drinking Follow any instructions from your health care provider about eating or drinking restrictions. When you feel hungry, start by eating small amounts of foods that are soft and easy to digest (bland), such as toast. Gradually return to your regular diet. Drink enough fluid to keep your urine pale yellow. If you vomit, rehydrate by drinking water, juice, or clear broth. General instructions If you have sleep apnea, surgery and certain medicines can increase your risk for breathing problems. Follow instructions from your health care provider about wearing your sleep device: ? Anytime you are sleeping, including during daytime naps. ? While taking prescription pain medicines, sleeping medicines, or medicines that make you drowsy. Return to your normal activities as told by your health care provider. Ask your health care provider what activities are safe for you. Take mqra-tmq-gvfdeiw and prescription medicines only as told by your health care provider. If you smoke, do not smoke without supervision. Keep all follow-up visits as told by your health care provider. This is important. Contact a health care provider if: You have nausea or vomiting that does not get better with medicine. You cannot eat or drink without vomiting. You have pain that does not get better with medicine. You are unable to pass urine. You develop a skin rash. You have a fever. You have redness around your IV site that gets worse. Get help right away if: You have difficulty breathing. You have chest pain. You have blood in your urine or stool, or you vomit blood. Summary After the procedure, it is common to have a sore throat or nausea. It is also common to feel tired. Have a responsible adult stay with you for the first 24 hours after general anesthesia. It is important to have someone help care for you until you are awake and alert. When you feel hungry, start by eating small amounts of foods that are soft and easy to digest (bland), such as toast. Gradually return to your regular diet. Drink enough fluid to keep your urine pale yellow. Return to your normal activities as told by your health care provider. Ask your health care provider what activities are safe for you. This information is not intended to replace advice given to you by your health care provider. Make sure you discuss any questions you have with your health care provider. Document Released: 02/16/2002 Document Revised: 11/13/2018 Document Reviewed: 06/26/2018 [employer] Patient Education 2020 [employer] Additional Information VACCINATE! IT SAVES LIVES! Members of the community who have not yet received the COVID-19 vaccine and would like to receive it can visit one of [facility] vaccine clinics. There are many vaccine clinic locations within the [facility]. For locations and available times, please visit [email or web address].[place].gov/. It is important to note that some COVID mobile vaccine clinics are held outdoors and may be canceled in rainy or stormy conditions. To learn more about pediatric vaccinations (ages 5-11), we invite you to visit the [facility] webpage. [email or web address] To learn more about the COVID-19 vaccine, we invite you to visit the [facility] website for a list of frequently asked questions. [email or web address] [email or web address] [facility] pic5 Patient Portal Access Instructions: Stay connected with your healthcare team and access your personal medical information anytime with the [facility] Patient Portal.If you would like a full copy of your medical records, please contact the [facility] Medical Records Department, Friday through Friday between 8a.m. and 4:30p.m. Please follow the directions below to access the portal: 1.Access the email account you provided upon registration to the hospital.2.Look for an invitation email from [facility].3.Open the email and access the invitation link: Accept Invitation to [facility]4.Fill in the required burris to create your account. Sign into [email or web address] with your username and password that you created in the above steps to stay up to date. You can then view a summary of results, a summary of your visits, and the ability to download your summaries to your computer or send the information securely to a physician. Remember that your healthcare information is confidential, so carefully consider who you will allow to register on the [facility] Patient Portal for access to your information. You can also access the [facility] Patient Portal on the Qoof wes. Simply click on Health Records under Health Data and then click on the [facility] logo. HOW TO SAFELY DISPOSE OF PRESCRIPTION MEDICATIONS Please use one of the following methods to safely dispose of your unused medications. 1.Use a drug disposal kit: the drug disposal pouch allows you to safely discard your old and unused drugs. Ask your nurse to give you one when you are discharged.2.Visit a local take-back location: Many local pharmacies and police departments have programs that collect old and unwanted prescription drugs. Call your local pharmacy or go to http://citibuddies.HemoBioTech,Inc/6W9Ha3d to find one close to you.3.Make use of household items: Use cat litter or old coffee grounds to dispose medications if other options are not available. Mix your drugs with these household products, seal them in an airtight container and throw it into the garbage. Call [facility]: [phone] to be sure your drugs can be disposed of in this way. Some medicines may require a different approach.4.Never flush your medications down the toilet. IF YOU HAVE BEEN PRESCRIBED AN OPIOID FOR PAIN If you have been prescribed an opioid (such as hydrocodone, oxycodone or morphine), it is critical to understand the possible side effects and risks of opioid pain medications. Even when taken as directed, opioids can have several side effects including: Tolerance, meaning you might need to take more of a medication for the same pain relief. Nausea, vomiting and/or constipation. Sleepiness, dizziness, dry mouth, confusion, depression or itching. Physical dependence, meaning you have withdrawal symptoms when a medication is stopped, can develop within a few days. KNOW YOUR RESPONSIBILITIES It is important to know exactly how much and how often to take the opioid pain medications you are prescribed. Never take opioids in higher amounts or more often than prescribed. Do not combine opioids with alcohol or other drugs that cause drowsiness, such as benzodiazepines, also known as benzos, including diazepam and alprazolam, muscle relaxants or sleep aids. Never sell or share prescription opioids. This is illegal. Store opioids in a secure place and out of reach of others (including children, family, friends and visitors). The last page of this document has been signed and retained as a CHART COPY. Signatures Patient Education Materials Humerus Fracture Treated With ORIF, Care After How to Use an Incentive Spirometer Nausea and Vomiting, Adult General Anesthesia, Adult, Care After Medication Leaflets My discharge plan and instructions have been reviewed and explained to me and IEULOGIO ANDREA M understand my current condition and have read and understand these discharge instructions. I have received a written copy of the plan/instructions. If I have questions, I am aware that I should contact my doctor. 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 History and Physical Subjective: Patient seen and examined. This is a 67-year-old female who sustained a ground-level fall onto her right upper extremity after she tripped and fell cord on 09/29/2022. She was seen at [facility] on the same day where x-rays revealed a displaced fracture of the surgical neck of the right humerus. She was placed in a sling and referred to [facility]. I reviewed the x-rays and recommended surgical intervention. CT scan was obtained to further delineate fracture pattern and determine whether ORIF versus reverse shoulder arthroplasty was appropriate. Patient denies any numbness or tingling in her right upper extremity. Denies associated injury. Denies prior problems with her right shoulder. Objective: Vital signs stable, afebrile General -A&Ox3, NAD, appears stated age. Vital signs stable, afebrile. Respiratory -normal work of breathing, no intercostal retractions. CV -pulses regular, brisk capillary refill 4 limbs. Abdomen-soft, nontender, nondistended. No guarding, rigidity, rebound tenderness. Musculoskeletal/neurologic -tenderness right proximal humerus. Neurovascular intact throughout. Sensation intact in all dermatomes. Cardinal motions of right hand are intact. Radial pulse 2+ brisk upper refill in the fingertips. Skin intact circumferentially without lacerations or abrasions. X-rays and CT scan reviewed. Fracture at the surgical neck with nondisplaced fracture of the greater tuberosity. Assessment and plan: Right proximal humerus fracture Recommended surgical intervention for right proximal humerus open reduction internal fixation. The risk, benefits, alternatives of procedure reviewed with patient at length and treated to proceed. Risks included but were not limited to bleeding, flexion, loss of life or limb, need for additional surgery, persistent pain, nonhealing bone or wounds, posttraumatic arthritis, neurovascular injury, DVT or PE. Patient expressed understand his risks wished proceed with surgery. Digitally Signed by JOHN BOUCHER DO on 10/04/2022 01:02 PM [facility] 10-04-2022 Anesthesiology Consult note Patient: JO KRISHNAN Age: 67 years Sex: Female : 1955 Associated Diagnoses: None Author: BENSON MURILLO APRN-ALESHA Preoperative Information Anesthesia history Patient's history: negative. Family's history: negative. Health Status Allergies: Allergic Reactions (Selected) Severity Not Documented Azelastine nasal- Jitteriness. Vicodin- Throat swelling., Allergies (2) ActiveReaction azelastine nasaljitteriness Vicodinthroat swelling Current medications: (Selected) Inpatient Medications Ordered Kefzol: 2 gram(s), 200 mL/hr, IV Piggyback, PREOP pharm LR 1,000 mL: 125 mL/hr, Intravenous, Stop: 10/04/22 23:59:00 EST Documented Medications Documented PreserVision AREDS 2 oral capsule: 1 cap(s), Oral, Daily, 0 Refill(s) Tylenol 325 mg oral capsule: 650 mg, 2 cap(s), Oral, QID, PRN: as needed for pain albuterol MDI (90 mcg/inh) CFC free inhalation aerosol: 2 puff(s), Inhalation, q6h, PRN: as needed for wheezing, 8.5 gram(s), 0 Refill(s) atorvastatin 20 mg oral tablet: 20 mg, 1 tab(s), Oral, Daily, 0 Refill(s) estradiol 1 mg oral tablet: 1 mg, 1 tab(s), Oral, qDay levothyroxine: 100 mcg, Oral, qDay, 0 Refill(s) loratadine 10 mg oral tablet: 10 mg, 1 tab(s), Oral, qDay omeprazole 10 mg oral delayed release capsule: 10 mg, 1 cap(s), Oral, qDay oxyCODONE 5 mg oral tablet ( IMMEDIATE release ): 5 mg, 1 tab(s), Oral, q6h, PRN: as needed for pain, 0 Refill(s) sertraline 50 mg oral tablet: 25 mg, 0.5 tab(s), Oral, Daily, 0 Refill(s), Medications (2) Active Scheduled: (1) ceFAZolin 2 gram(s), IV Piggyback, PREOP pharm Continuous: (1) Lactated Ringers 1,000 mL 1,000 mL, Intravenous, 125 mL/hr PRN: (0) Problem list: Active Problems (5) GERD (gastroesophageal reflux disease) High cholesterol Hypothyroidism OA (osteoarthritis) Panic disorder Histories Past Medical History: No active or resolved past medical history items have been selected or recorded. Family History: Aortic valve disorder Father Procedure history: Hysterectomy (325096105). LEEP (Loop electrosurgical excision procedure) of cervix ([id number]). Tonsillectomy (940010479). 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 Physical Examination Vital Signs 10/04/2022 10:53 EST Temperature Temporal Artery 36.6 DegC Peripheral Pulse Rate 95 bpm Respiratory Rate 18 br/min Systolic Blood Pressure Non-Invasive 159 mmHg HI Diastolic Blood Pressure Non-Invasive 85 mmHg Vital Signs(last 24 hrs) Last Charted Resp Rate 18 br/min (OCT 04 10:53) SBPH 159mmHg (OCT 04 10:53) DBP85 mmHg (OCT 04 10:53) Measurements from flowsheet : Measurements 10/04/2022 10:53 EST Height 170.2 cm Admission Weight 99.5 kg [facility] Body Weight 61.62 kg Admission Body Mass Index 34.35 m2 10/03/2022 11:59 EST Height 170.2 cm Admission Weight 99.5 kg [place] Body Weight 61.62 kg Pain assessment: Pain Assessment 10/04/2022 10:53 EST Primary Pain Intensity 0 Pain Scale Type 0-10 Pain scale . General: Alert and oriented. Airway: Normal temporomandibular joint mobility. Mallampati classification: II (soft palate, fauces, uvula visible). Dentition Evaluation: implants upper. Respiratory: Lungs are clear to auscultation, Respirations are non-labored. Cardiovascular: Normal rate, Regular rhythm. Neurologic: Alert, Oriented. Review / Management Results review: Labs (Last four charted values) WBC H 13.6(OCT 04) Hgb L 11.2(OCT 04) Hct L 33.2(OCT 04) Plt 353(OCT 04) , Lab results 10/04/2022 11:59 EST citric acid-sodium citrate Not Done: Other (Not Done) 10/04/2022 11:57 EST famotidine 20 mg mg Lactated Ringers Injection Begin Bag 1,000 mL mL 10/04/2022 11:55 EST XR Chest 2 Views XR CHEST 2 VIEWS 10/04/2022 11:47 EST SN - Preop - CTm Pt Ready for OR/Proced 10/04/2022 11:47 10/04/2022 11:40 EST Ed-Plan of Care Verbalizes/Nonverbally indicates understanding Individuals Taught Patient, Spouse Learning Readiness Willing to learn Barriers to Learning None evident Teaching Method Explanation Preferred Written Language Taiwanese Preferred Spoken Language Taiwanese Pre Procedure/Surgery Education Appropriate expectations Ed-DVT Prophylaxis Verbalizes/Nonverbally indicates understanding Ed-DVT Signs and Symptoms Verbalizes/Nonverbally indicates understanding 10/04/2022 11:38 EST WBC 13.6 10^3/mcL HI RBC 3.75 10^6/mcL LOW Hgb 11.2 G/dL LOW Hct 33.2 % LOW MCV 88.4 fL MCH 29.8 pg MCHC 33.7 G/dL RDW 14.4 % Platelet 353 10^3/mcL MPV 8.1 fL Neutrophil % 85.3 % HI Lymphocyte % 9.4 % LOW Monocyte % 4.8 % Eosinophil % 0.2 % Basophil % 0.3 % Neutrophil, Absolute 11.6 10^3/mcL HI Lymphocyte, Absolute 1.3 10^3/mcL Monocyte, Absolute 0.6 10^3/mcL Eosinophil, Absolute 0.0 10^3/mcL Basophil, Absolute 0.0 10^3/mcL 10/04/2022 11:05 EST Electrocardiogram [AOH] - CV Completed (In Progress) 10/04/2022 10:53 EST Height 170.2 cm Admission Weight 99.5 kg [place] Body Weight 61.62 kg Admission Body Mass Index 34.35 m2 Temperature Temporal Artery 36.6 DegC Peripheral Pulse Rate 95 bpm Respiratory Rate 18 br/min Systolic Blood Pressure Non-Invasive 159 mmHg HI Diastolic Blood Pressure Non-Invasive 85 mmHg Primary Pain Intensity 0 Pain Scale Type 0-10 Pain scale Heart Rhythm Regular Oxygen Therapy Room air Oxygen Saturation 98 % Abdomen Description Non-distended, Soft Swallowing Disorder None Bowel Sounds All Quadrants Present Urinary Elimination Incontinence Skin Temperature Warm Skin Description [place], Normal for ethnicity, Dry Skin Moisture General Dry IV Present Present Hand Left 10/04/2022 20 gauge Peripheral IV Activity: Assessed Peripheral IV Site Condition: No complications Peripheral IV Number of Attempts: 1 Neurological Symptoms Patient denies Extremity Movement Unequal Characteristics of Speech Clear Level of Consciousness Alert Sensation All Extremities Intact Affect/Behavior Anxious Orientation Oriented x 4 Allergies Yes Claims Supervisor On Yes Patient Dressed In Hospital gown History & Physical Update On Chart Yes History & Physical On Chart Yes Obstructive Sleep Apnea Assess Completed Yes Orientation Assessment Oriented x 4 Belongings At Bedside Pants, Shirt, Shoes Activity Status ADL Ambulating in corrigan, Ambulating in room, Awake Assistive Device None SCD On/Re-applied bilateral knee high Antiembolism Stocking On/Re-applied bilateral knee high NPO Status Maintained Standard Safety ID band on, Allergy Band on, Call device within reach, Bed in low position, Wheels locked, Safety level maintained Allergy Band on and Verified Yes Patient ID Band on and Verified Yes Implants Verified Yes Pacemaker/AICD Verified Yes Last Fluid Intake 10/03/2022 23:59 Last Food Intake 10/03/2022 21:00 Last Void 10/04/2022 11:37 10/04/2022 10:36 EST SN - Preop - CTm Pt in SDS Room 10/04/2022 10:36 10/03/2022 11:59 EST Designated Person #1 We May Share KADEEM Jennifer Eulogio [phone] Designated Person #1 Relationship Spouse Designated Person #2 We May Share KADEEM Finn [phone] Designated Person #2 Relationship Sibling Privacy Restrictions Requested None Height 170.2 cm Admission Weight 99.5 kg [facility] Body Weight 61.62 kg Status No, per patient Sensory Deficits None Sleep Apnea Snore No Sleep Apnea Tired No Sleep Apnea Obstruction No Sleep Apnea Pressure No Sleep Apnea BMI No Sleep Apnea Age Yes Sleep Apnea Neck No Sleep Apnea Gender No Sleep Apnea Score 1 High Risk for Sleep Apnea No Diagnosed With Sleep Apnea No Advanced Directives No - refuses information Infectious Disease Symptoms Patient states no symptoms Infectious Disease Recent Exposure No Alcohol and Drug Use No Employee of Institutional Living No Health Care Employee No History of Exposure to TB No History of Positive Chest X-Ray for TB No History of Positive TB Skin Test No Homeless No Known Immunosuppression No Recent Immigrant No Resident of Institutional Living No Bloody Sputum No Fatigue No Fever No Loss of Appetite No Night Sweats No Persistent Cough > 3 Weeks No Weight Loss No Pre-Op Patient Education NPO after midnight, No makeup, No jewelry, Responsible Republican, Aware of surgery location, Pre-op education done, Patient instructed to take ordered medications SN - Preprocedure Comments Spoke with patient, Verbalizes/Nonverbally indicates understanding, Other: Levothyroxine, Omeprazole Safety Brochure Information Reviewed Unable to complete [facility] Video Viewed No Barriers to Learning None evident Teaching Method Explanation Teaching Evaluation No further teaching needed Preferred Written Language Taiwanese Preferred Spoken Language Taiwanese Information Given by Patient Patient's Current Physicians Patient's Current Physicians Discharge To, Anticipated Home with family care Prev Test Positive/Diagnosis w/COVID-19 No Current Quarantine/Isolated any Illness No Any Contact with Sick Animals/Birds No Traveled Anywhere in Last 30 Days No Lost Weight Unintentionally Recently No Eat Poorly Due to Decreased Appetite No Total MST Score 0 No Personal Devices, Patient Valuables Glasses Anesthesia/Transfusions Prior anesthesia Admission Note-Nursing Same Day Patient History (Modified) . Assessment and Plan [place] Society of Anesthesiologists (ASA) physical status classification: Class III. Anesthetic Preoperative Plan Anesthetic technique: General. Maintenance airway: Oral endotracheal tube. Postoperative pain management: interscalene block. Risks discussed: nausea, vomiting, sore throat, dental injury, hypotension, allergic reaction, serious complications. Informed consent: signed by patient. Digitally Signed by BENSON MURILLO on 10/04/2022 12:03 PM [facility] 10-04-2022 Note ORIGINAL EXAMINATION: TWO XRAY VIEWS OF THE CHEST10/04/2022 11:56 am COMPARISON: None HISTORY: ORDERING SYSTEM PROVIDED HISTORY: Reason for Exam: preop exam, wheezing FINDINGS: Examination is degraded secondary to patient positioning. No focal area of consolidation, vascular congestion, pleural effusion, or pneumothorax. Cardiac silhouette is normal in size. No acute osseous abnormalities. IMPRESSION: No acute radiographic findings. Interpreted by: Javier Martinez DO Preliminary Report By: Javier Martinez DO Electronically signed By Javier Martinez DO Dictated Date: 10/04/2022 11:59:12 AM Prelim Date: 10/04/2022 11:59:49 AM Sign Date: 10/04/2022 11:59:49 AM [facility] 10-04-2022 Note ORIGINAL EXAMINATION: TWO XRAY VIEWS OF THE CHEST10/04/2022 11:56 am COMPARISON: None HISTORY: ORDERING SYSTEM PROVIDED HISTORY: Reason for Exam: preop exam, wheezing FINDINGS: Examination is degraded secondary to patient positioning. No focal area of consolidation, vascular congestion, pleural effusion, or pneumothorax. Cardiac silhouette is normal in size. No acute osseous abnormalities. IMPRESSION: No acute radiographic findings. Interpreted by: Javier Martinez DO Preliminary Report By: Javier Martinez DO Electronically signed By Javier Martinez DO Dictated Date: 10/04/2022 11:59:12 AM Prelim Date: 10/04/2022 11:59:49 AM Sign Date: 10/04/2022 11:59:49 AM [facility]ing [facility] Evaluation + Plan note No data available for this section [facility] documented in this encounter [facility] Summary Purpose Family History No Family History Records FoundNo Family History Records FoundNo Family History Records Found Advance Directives No Advanced Directives Records FoundNo Advanced Directives Records FoundNo Advanced Directives Records Found Additional Source Comments INFORMATION SOURCE (unrecogn ized section and content) DATE CREATED AUTHOR AUTHOR'S ORGANIZ ATION 10/10/2022 [facility] ([place]) DATE CREATED AUTHOR AUTHOR'S HERNANDEZ SANFORD 12/18/2022 [facility] Care Team (unrecognized sect ion and content) Care Team Personnel Name: AGGIE SORENSEN MD Member Role: Primary Care Physician Address: Address: [address] [place] [address]- Care Team Related Persons Name: JENNIFER KRISHNAN Address: Home [address] [place] [address] Source Comments (unrecognize d section and content) In the event this informatio n is protected by the Federal Confidentiality of Alcohol and Drug Abuse Patient Records regulations: The Federal rules restrict any use of the information to criminally investigate or prosecute any alcohol or drug abuse patient.[facility] Reason for Visit (unrecogniz ed section and content) FOR RECORDS PERTAINING TO PATIENTS WHO ARE OR HAVE BEEN ENROLLED IN A CHEMICAL DEPENDENCY/SUBSTANCEABUSE PROGRAM, SOME INFORMATION MAY BE OMITTED. This clinical summary was aggregated from multiple sources. Caution should be exercised in using it in the provision of clinical care. This summary normalizes information from multiple sources, and as a consequence, information in this document may materially change the coding, format and clinical context of patient data. In addition, data may be omitted in some cases. CLINICAL DECISIONS SHOULD BE BASED ON THE PRIMARY CLINICAL RECORDS. [facility] [employer] [facility]. provides no warranty or guarantee of the accuracy or completeness of information in this document.
== END | disposition home or self-care (01) ==
PROVIDERS: PCP Family Medicine; Referring Provider Family Medicine; Visit Provider Family Medicine
DX: H53.8 Other visual disturbances (principal); R42 Dizziness and giddiness
CPT/HCPCS: 93880

== ENCOUNTER → 2024-02-13 | Outpatient (CLI) | payer MEDICARE, OTHER, SELFPAY ==
[2024-02-13 18:36] LABS: AST(SGOT) 20 U/L (15-37); Alanine Aminotransfer ALT/SGPT 25 U/L (13-56); Cholesterol 188 mg/dL (200); High Density Lipoprotein 52 mg/dL; T4 Total, Thyroxin 10.2 ug/dL (4.8-13.9); Thyroid Stim Hormone (TSH) 0.73 uIU/mL (0.358-3.74); Triglycerides 131 mg/dL; Very Low Density Lipoprotein 26 mg/dL (5-40)
== END | disposition home or self-care (01) ==
LOC: MFPLAB 16:27
PROVIDERS: PCP Family Medicine; Visit Provider Family Medicine
DX: E78.5 Hyperlipidemia, unspecified (principal); E03.9 Hypothyroidism, unspecified
CPT/HCPCS: 36415; 80061; 84436; 84443; 84450; 84460

== ENCOUNTER → 2024-05-31 | Outpatient (CLI) | payer MEDICARE, OTHER, SELFPAY ==
--- NOTE | 2024-05-31 13:44 | BI_ITS ---
MAMMOGRAPHY - BILATERAL SCREENING REASON FOR EXAM: Female, 69 years old. Routine annual screening examination. PERTINENT HISTORY: Grandmother with breast cancer. TECHNIQUE: Digital bilateral breast karen (3D mammographic acquisition) in the CC and MLO projections. 2-D mediolateral oblique (MLO) and craniocaudad (CC) views of both breasts were obtained. CAD: Full Field Digital Mammography with Computer Added Detection was performed. COMPARISON: Comparison is made with prior study dated May 30, 2023 and June 26, 2021. FINDINGS: Breast Composition: The breasts are heterogeneously dense, which may obscure small masses. There are no dominant masses or suspicious calcifications. Stable small benign-appearing bilateral axillary lymph nodes. No other significant abnormalities are identified. There has been no significant change since the prior study. BI/SCRN MAMM (CAD)W/KAREN BILAT IMPRESSION: Stable bilateral screening mammogram. Yearly follow-up mammogram recommended. (A) ASSESSMENT CATEGORY: BIRADS Category 1: Negative. A letter regarding these results will be sent to the patient by the facility within 30 days. Approximately 10% of breast cancers are not detected by mammography. A normal mammogram should not delay biopsy of a clinically suspicious abnormality. [id number] Electronically Signed: Rickie Pepper MD at 14:57 EDT ,
== END | disposition home or self-care (01) ==
LOC: OPBI 13:44
PROVIDERS: PCP Family Medicine; Referring Provider Family Medicine; Visit Provider Family Medicine
DX: Z12.31 Encounter for screening mammogram for malignant neoplasm of breast (principal); Z80.3 Family history of malignant neoplasm of breast
CPT/HCPCS: 77063; 77067

== ENCOUNTER → 2025-02-21 | Outpatient (CLI) | payer MEDICARE, OTHER, SELFPAY ==
[2025-02-21 18:38] LABS: AST(SGOT) 24 U/L (<=31); Alanine Aminotransfer ALT/SGPT 26 U/L (<=34); Cholesterol 151 mg/dL (<=200); High Density Lipoprotein 50 mg/dL; Low Density Lipoprotein Calc. 77 mg/dL; Thyroid Stim Hormone (TSH) 0.576 uIU/mL (0.300-4.200); Triglycerides 119 mg/dL; Very Low Density Lipoprotein 24 mg/dL (5-40); cholesterol:hdl ratio screen 3.03
== END | disposition home or self-care (01) ==
LOC: MTLAB 14:37
PROVIDERS: PCP Family Medicine; Referring Provider Family Medicine; Visit Provider Family Medicine
DX: E03.9 Hypothyroidism, unspecified (principal); E78.5 Hyperlipidemia, unspecified
CPT/HCPCS: 80061; 84436; 84443; 84450; 84460

== ENCOUNTER → 2025-06-01 | Outpatient (CLI) | payer MEDICARE, OTHER, SELFPAY ==
--- NOTE | 2025-06-01 13:44 | BI_ITS ---
EXAM: SCRN MAMM (CAD)W/KAREN BILAT DATE: 06/01/2025 CLINICAL HISTORY: F, Age 70 y/o , SCREENING TECHNIQUE: SCRN MAMM (CAD)W/KAREN BILAT COMPARISON: Prior exam(s) dated 05/31/2024, 05/30/2023, 06/26/2021. FINDINGS: TISSUE DENSITY: The breasts are heterogeneously dense, which may obscure small masses. The mammogram demonstrates that the patient has dense breasts. Supplemental screening with whole breast ultrasound or MRI may be considered for further evaluation. Bilateral Breast Mammographic Findings: No significant masses, calcifications or other abnormalities are identified. BI/SCRN MAMM (CAD)W/KAREN BILAT IMPRESSION: There is no mammographic evidence of malignancy. OVERALL FINAL ASSESSMENT BI-RADS 1: NEGATIVE. RECOMMEND ANNUAL MAMMOGRAPHIC SCREENING. RECOMMENDATION: Routine annual follow-up in 1 Year A letter with findings and recommendations will be mailed to the patient. Reading Location: [id number]
== END | disposition home or self-care (01) ==
PROVIDERS: PCP Family Medicine; Referring Provider Family Medicine; Visit Provider Family Medicine
DX: Z12.31 Encounter for screening mammogram for malignant neoplasm of breast (principal)
CPT/HCPCS: 77063; 77067